=== PATIENT | female | born 1950 | race Caucasian/White ===

== ENCOUNTER → 2016-05-28 | Outpatient (CLI) | payer MEDICARE, OTHER ==
[2016-05-28 16:01] VITALS: BP 144/64; PULSE 58; RESP 16; TEMP 98.2; BMI 27.6
--- NOTE | 2016-05-28 16:29 | P.HPBAR ---
Bariatric H&P - History & Physicial H&P Date: 05/28/16 History & Physicial: Visit/CC: Patient initial contact: Initial weight: 96.162 kg Initial weight in pounds: 212.00 Height: 5 ft Initial BMI: 41.3 Last weight: Current weight: 64.013 kg Current weight in pounds: 141.00 Current BMI: 27.6 [place] body weight (based on NIH guidelines): 45.359 kg Excess body weight loss: 63.3% The patient is a 65 year-old F who presents for Bariatric Assessment. Patient presents today for follow-up. She has had issues with seroma after panniculectomy. Her ISA drainage has decreased. Past Medical History Past Medical History: Atrial Fibrillation, GERD/Reflux, Hypertension, Musculoskeletal Disorder, Pneumonia, Renal Disease Additional Past Medical History / Comment(s): BORN W/ RT KIDNEY ONLY. Gout LT GREAT TOE. PANNICULUS on 03/26/2016, ABD HERNIA'S X3 CURRENTLY. VARICOSE VEIN. History of Any Multi-Drug Resistant Organisms: None Reported Past Surgical History: Bariatric Surgery, Section, Cholecystectomy, Hernia Repair, Hysterectomy Additional Past Surgical History / Comment(s): 2010 Panniculectomy; Several Hernia Surgeries; Gastric Sleeve 2013. Panniculectomy and hernia repair 2015 Past Anesthesia/Blood Transfusion Reactions: No Reported Reaction Past Psychological History: Anxiety, Depression Additional Psychological History / Comment(s): PAST ANXIETY. Smoking Status: Never smoker Past Alcohol Use History: None Reported Past Drug Use History: None Reported - Past Family History Father Family Medical History: Diabetes Mellitus Mother Family Medical History: Cancer, Liver Disease Surgical - Exam Vital Signs Temp Pulse Resp BP 98.2 F 58 L 16 144/64 05/28/16 15:59 05/28/16 15:59 05/28/16 15:59 05/28/16 15:59 - General well developed, no distress - Eyes PERRL - ENT normal pinna - Neck no masses - Respiratory normal expansion - Cardiovascular Rhythm: regular - Abdomen Abdomen: soft, non tender Bariatric Assessment & Plan Plan: The patient's ISA drains removed in the office. Her seroma appears resolved. She'll follow-up with recheck Bariatric Checklist Checklist: Plan: Checklist: EGD: 1. Hiatal hernia: 2. H. Pylori: HgbA1c: Vitamin D: Smoking: Never smoker Primary care physician referral: tabitha Ocasio Psychiatry clearance: Cardiology clearance: Sleep study: Diet journal: VTE risk score: VTE risk level: Rehab needs at discharge:
== END ==
LOC: BARWHC3 13:04
PROVIDERS: ATTEND Surgery
DX: Z48.815 Encounter for surgical aftercare following surgery on the digestive system (principal); Z98.84 Bariatric surgery status; Z68.27 Body mass index [BMI] 27.0-27.9, adult
CPT/HCPCS: 99211

== ENCOUNTER → 2016-07-16 | Outpatient (CLI) | payer MEDICARE, OTHER ==
[2016-07-16 14:59] VITALS: BP 148/81; PULSE 70; RESP 16; TEMP 98.1; BMI 27.4
--- NOTE | 2016-07-16 15:04 | P.HPBAR ---
Bariatric H&P - History & Physicial H&P Date: 07/16/16 History & Physicial: Visit/CC: Cam follow-up Patient initial contact: Initial weight: 96.162 kg Initial weight in pounds: 212.00 Height: 5 ft Initial BMI: 41.3 Last weight: Current weight: 63.73 kg Current weight in pounds: 140.00 Current BMI: 27.4 [place] body weight (based on NIH guidelines): 45.359 kg Excess body weight loss: 64.2% The patient is a 65 year-old F who presents for Bariatric Assessment. Patient presents for follow-up from panniculectomy. She states she has developed a slight mass on the right side of her incision. Past Medical History Past Medical History: Atrial Fibrillation, GERD/Reflux, Hypertension, Musculoskeletal Disorder, Pneumonia, Renal Disease Additional Past Medical History / Comment(s): BORN W/ RT KIDNEY ONLY. Gout LT GREAT TOE. PANNICULUS on 03/26/2016, ABD HERNIA'S X3 CURRENTLY. VARICOSE VEIN. History of Any Multi-Drug Resistant Organisms: None Reported Past Surgical History: Bariatric Surgery, Section, Cholecystectomy, Hernia Repair, Hysterectomy Additional Past Surgical History / Comment(s): 2010 Panniculectomy; Several Hernia Surgeries; Gastric Sleeve 2013. Panniculectomy and hernia repair 2015 Past Anesthesia/Blood Transfusion Reactions: No Reported Reaction Past Psychological History: Anxiety, Depression Additional Psychological History / Comment(s): PAST ANXIETY. Smoking Status: Never smoker Past Alcohol Use History: None Reported Past Drug Use History: None Reported - Past Family History Father Family Medical History: Diabetes Mellitus Mother Family Medical History: Cancer, Liver Disease Surgical - Exam Vital Signs Temp Pulse Resp BP 98.1 F 70 16 148/81 07/16/16 14:55 07/16/16 14:55 07/16/16 14:55 07/16/16 14:55 - General well developed, no distress - Eyes PERRL - ENT normal pinna - Neck no masses - Respiratory normal expansion - Cardiovascular Rhythm: regular - Abdomen Small 5 cm seroma on right side of lower incision. No evidence of infection. Abdomen: soft, non tender Bariatric Assessment & Plan Plan: Throat. 50 mL of seroma fluid was aspirated from the mass. The mass resolved. There is no evidence of any purulent fluid. The patient will follow-up in one week for recheck. Bariatric Checklist Checklist: Plan: Checklist: EGD: 1. Hiatal hernia: 2. H. Pylori: HgbA1c: Vitamin D: Smoking: Never smoker Primary care physician referral: tabitha Ocasio Psychiatry clearance: Cardiology clearance: Sleep study: Diet journal: VTE risk score: VTE risk level: Rehab needs at discharge:
== END | disposition home or self-care (01) ==
LOC: BARWHC3 13:45
PROVIDERS: ATTEND Surgery
DX: Z48.815 Encounter for surgical aftercare following surgery on the digestive system (principal); Z98.84 Bariatric surgery status; Z68.27 Body mass index [BMI] 27.0-27.9, adult; K91.872 Postprocedural seroma of a digestive system organ or structure following a digestive system procedure; D61.818 Other pancytopenia; D46.9 Myelodysplastic syndrome, unspecified
CPT/HCPCS: 99211

== ENCOUNTER → 2016-07-23 | Outpatient (CLI) | payer MEDICARE, OTHER ==
[2016-07-23 13:37] VITALS: BP 131/73; PULSE 58; RESP 14; TEMP 97.3; BMI 27.3
--- NOTE | 2016-07-23 13:46 | P.HPBAR ---
Bariatric H&P - History & Physicial H&P Date: 07/23/16 History & Physicial: Visit/CC: brionna f/u Patient initial contact: Initial weight: 96.162 kg Initial weight in pounds: 212.00 Height: 5 ft Initial BMI: 41.3 Last weight: Current weight: 63.412 kg Current weight in pounds: 139.80 Current BMI: 27.3 [place] body weight (based on NIH guidelines): 45.359 kg Excess body weight loss: 64.4% The patient is a 65 year-old F who presents for Bariatric Assessment. Patient presents today for sleeve follow-up. Her weight has been stable. She also has a small seroma located at the right lateral portion of her Review of Systems Constitutional: Reports as per HPI Past Medical History Past Medical History: Atrial Fibrillation, GERD/Reflux, Hypertension, Musculoskeletal Disorder, Pneumonia, Renal Disease Additional Past Medical History / Comment(s): BORN W/ RT KIDNEY ONLY. Gout LT GREAT TOE. PANNICULUS on 03/26/2016, ABD HERNIA'S X3 CURRENTLY. VARICOSE VEIN. History of Any Multi-Drug Resistant Organisms: None Reported Past Surgical History: Bariatric Surgery, Section, Cholecystectomy, Hernia Repair, Hysterectomy Additional Past Surgical History / Comment(s): 2010 Panniculectomy; Several Hernia Surgeries; Gastric Sleeve 2013. Panniculectomy and hernia repair 2015 Past Anesthesia/Blood Transfusion Reactions: No Reported Reaction Past Psychological History: Anxiety, Depression Additional Psychological History / Comment(s): PAST ANXIETY. Smoking Status: Never smoker Past Alcohol Use History: None Reported Past Drug Use History: None Reported - Past Family History Father Family Medical History: Diabetes Mellitus Mother Family Medical History: Cancer, Liver Disease Surgical - Exam Vital Signs Temp Pulse Resp BP 97.3 F L 58 L 14 131/73 07/23/16 13:28 07/23/16 13:28 07/23/16 13:28 07/23/16 13:28 - General well developed, no distress - Eyes PERRL - ENT normal pinna - Respiratory normal expansion - Abdomen 5 cm mass in the right lateral aspect of her incision where her previous seroma was drained. Abdomen: soft, non tender Bariatric Assessment & Plan Plan: The patient is doing well with regards to gastric sleeve. Her weight loss appears to have plateaued. A lengthy discussion with the patient regarding her small seroma. I recommended observation at this time. Bariatric Checklist Checklist: Plan: Checklist: EGD: 1. Hiatal hernia: 2. H. Pylori: HgbA1c: Vitamin D: Smoking: Never smoker Primary care physician referral: lori avelar ([facility]) Psychiatry clearance: Cardiology clearance: Sleep study: Diet journal: VTE risk score: VTE risk level: Rehab needs at discharge:
== END | disposition home or self-care (01) ==
LOC: BARWHC3 12:31
PROVIDERS: ATTEND Surgery
DX: Z48.815 Encounter for surgical aftercare following surgery on the digestive system (principal); Z68.27 Body mass index [BMI] 27.0-27.9, adult; K91.872 Postprocedural seroma of a digestive system organ or structure following a digestive system procedure; Z98.84 Bariatric surgery status
CPT/HCPCS: 99212

== ENCOUNTER → 2016-08-13 | Outpatient (CLI) | payer MEDICARE, OTHER ==
[2016-08-13 13:07] VITALS: BP 163/74; PULSE 61; RESP 16; TEMP 98.1; BMI 27.8
--- NOTE | 2016-08-13 13:53 | P.HPBAR ---
Bariatric H&P - History & Physicial H&P Date: 08/13/16 History & Physicial: Visit/CC: Cam follow up Patient initial contact: Initial weight: 96.162 kg Initial weight in pounds: 212.00 Height: 5 ft Initial BMI: 41.3 Last weight: Current weight: 64.637 kg Current weight in pounds: 142.00 Current BMI: 27.8 [place] body weight (based on NIH guidelines): 45.359 kg Excess body weight loss: 62.5% The patient is a 65 year-old F who presents for Bariatric Assessment. The patient presents today for follow-up. She is doing well from her gastric sleeve. She has had a recurrent seroma develop in the right lower quadrant. This had been previously aspirated. Review of Systems Constitutional: Reports as per HPI Past Medical History Past Medical History: Atrial Fibrillation, GERD/Reflux, Hypertension, Musculoskeletal Disorder, Pneumonia, Renal Disease Additional Past Medical History / Comment(s): BORN W/ RT KIDNEY ONLY. Gout LT GREAT TOE. PANNICULUS on 03/26/2016, ABD HERNIA'S X3 CURRENTLY. VARICOSE VEIN. History of Any Multi-Drug Resistant Organisms: None Reported Past Surgical History: Bariatric Surgery, Section, Cholecystectomy, Hernia Repair, Hysterectomy Additional Past Surgical History / Comment(s): 2010 Panniculectomy; Several Hernia Surgeries; Gastric Sleeve 2013. Panniculectomy and hernia repair 2015 Past Anesthesia/Blood Transfusion Reactions: No Reported Reaction Past Psychological History: Anxiety, Depression Additional Psychological History / Comment(s): PAST ANXIETY. Smoking Status: Never smoker Past Alcohol Use History: None Reported Past Drug Use History: None Reported - Past Family History Father Family Medical History: Diabetes Mellitus Mother Family Medical History: Cancer, Liver Disease Surgical - Exam Vital Signs Temp Pulse Resp BP 98.1 F 61 16 163/74 08/13/16 13:05 08/13/16 13:05 08/13/16 13:05 08/13/16 13:05 - General well developed, no distress - Eyes PERRL - Respiratory normal expansion - Cardiovascular Rhythm: regular - Abdomen Abdomen: soft, non tender Bariatric Assessment & Plan Plan: The patient's room was aspirated. 10 mL of serosanguineous fluid was removed. This may be related to a small hematoma. Sterile dressings was applied. Patient will follow-up in one month for recheck. Bariatric Checklist Checklist: Plan: Checklist: EGD: 1. Hiatal hernia: 2. H. Pylori: HgbA1c: Vitamin D: Smoking: Never smoker Primary care physician referral: lori avelar ([facility]) Psychiatry clearance: Cardiology clearance: Sleep study: Diet journal: VTE risk score: VTE risk level: Rehab needs at discharge:
== END ==
LOC: BARWHC3 12:40
PROVIDERS: ATTEND Surgery
DX: Z48.815 Encounter for surgical aftercare following surgery on the digestive system (principal); Z98.84 Bariatric surgery status
CPT/HCPCS: 99211

== ENCOUNTER → 2016-09-17 | Outpatient (CLI) | payer MEDICARE, OTHER ==
[2016-09-17 14:36] VITALS: BP 169/71; PULSE 53; TEMP 98.2; BMI 28.1
--- NOTE | 2016-09-17 16:19 | P.HPBAR ---
Bariatric H&P - History & Physicial H&P Date: 09/17/16 History & Physicial: Visit/CC: follow up visit Patient initial contact: Initial weight: 96.162 kg Initial weight in pounds: 212.00 Height: 5 ft Initial BMI: 41.3 Last weight: Current weight: 65.317 kg Current weight in pounds: 144.00 Current BMI: 28.1 [place] body weight (based on NIH guidelines): 45.359 kg Excess body weight loss: 60.7% The patient is a 65 year-old F who presents for Bariatric Assessment. The patient presents today for sleeve gastrectomy follow-up. She states her previous seromas have resolved. She's had some mild GERD symptoms. Past Medical History Past Medical History: Atrial Fibrillation, GERD/Reflux, Hypertension, Musculoskeletal Disorder, Pneumonia, Renal Disease Additional Past Medical History / Comment(s): BORN W/ RT KIDNEY ONLY. Gout LT GREAT TOE. PANNICULUS on 03/26/2016, ABD HERNIA'S X3 CURRENTLY. VARICOSE VEIN. History of Any Multi-Drug Resistant Organisms: None Reported Past Surgical History: Bariatric Surgery, Section, Cholecystectomy, Hernia Repair, Hysterectomy Additional Past Surgical History / Comment(s): 2010 Panniculectomy; Several Hernia Surgeries; Gastric Sleeve 2013. Panniculectomy and hernia repair 2015 Past Anesthesia/Blood Transfusion Reactions: No Reported Reaction Past Psychological History: Anxiety, Depression Additional Psychological History / Comment(s): PAST ANXIETY. Smoking Status: Never smoker Past Alcohol Use History: None Reported Past Drug Use History: None Reported - Past Family History Father Family Medical History: Diabetes Mellitus Mother Family Medical History: Cancer, Liver Disease Surgical - Exam Vital Signs Temp Pulse BP 98.2 F 53 L 169/71 09/17/16 14:31 09/17/16 14:31 09/17/16 14:31 - General well developed, no distress - Eyes PERRL - Respiratory normal expansion - Cardiovascular Rhythm: regular - Abdomen Abdomen: soft, non tender Bariatric Assessment & Plan Plan: The patient is doing very well. Her GERD symptoms as well as her. She'll follow-up in one month. Bariatric Checklist Checklist: Plan: Checklist: EGD: 1. Hiatal hernia: 2. H. Pylori: HgbA1c: Vitamin D: Smoking: Never smoker Primary care physician referral: lori franklinttrell) Psychiatry clearance: Cardiology clearance: Sleep study: Diet journal: VTE risk score: VTE risk level: Rehab needs at discharge:
== END | disposition home or self-care (01) ==
LOC: BARWHC3 13:55
PROVIDERS: ATTEND Surgery
DX: K21.9 Gastro-esophageal reflux disease without esophagitis (principal); Z98.84 Bariatric surgery status
CPT/HCPCS: 99211

== ENCOUNTER → 2016-10-22 | Outpatient (CLI) | payer MEDICARE, OTHER ==
[2016-10-22 13:21] VITALS: BP 151/70; PULSE 56; RESP 16; TEMP 97.9; BMI 27.6
--- NOTE | 2016-10-22 13:35 | P.HPBAR ---
Bariatric H&P - History & Physicial H&P Date: 10/22/16 History & Physicial: Visit/CC: Cam [place] Patient initial contact: Initial weight: 96.162 kg Initial weight in pounds: 212.00 Height: 5 ft Initial BMI: 41.3 Last weight: Current weight: 64.183 kg Current weight in pounds: 141.00 Current BMI: 27.6 [place] body weight (based on NIH guidelines): 45.359 kg Excess body weight loss: 63.3% The patient is a 65 year-old F who presents for Bariatric Assessment. Patient presents today for sleeve and panniculus for follow-up. She is doing quite well. She's had minimal GERD symptoms.. She's had some weight loss since her last visit. She lost presents today for pounds. The patient has had some minimal GERD. Her GERD is being managed by Pepcid when necessary. Past Medical History Past Medical History: Atrial Fibrillation, GERD/Reflux, Hypertension, Musculoskeletal Disorder, Pneumonia, Renal Disease Additional Past Medical History / Comment(s): BORN W/ RT KIDNEY ONLY. Gout LT GREAT TOE. PANNICULUS on 03/26/2016, ABD HERNIA'S X3 CURRENTLY. VARICOSE VEIN. History of Any Multi-Drug Resistant Organisms: None Reported Past Surgical History: Bariatric Surgery, Section, Cholecystectomy, Hernia Repair, Hysterectomy Additional Past Surgical History / Comment(s): 2010 Panniculectomy; Several Hernia Surgeries; Gastric Sleeve 2013. Panniculectomy and hernia repair 2015 Past Anesthesia/Blood Transfusion Reactions: No Reported Reaction Past Psychological History: Anxiety, Depression Additional Psychological History / Comment(s): PAST ANXIETY. Smoking Status: Never smoker Past Alcohol Use History: None Reported Past Drug Use History: None Reported - Past Family History Father Family Medical History: Diabetes Mellitus Mother Family Medical History: Cancer, Liver Disease Surgical - Exam Vital Signs Temp Pulse Resp BP 97.9 F 56 L 16 151/70 10/22/16 13:20 10/22/16 13:20 10/22/16 13:20 10/22/16 13:20 Bariatric Assessment & Plan Plan: Morbid obesity status post sleeve gastrectomy. Patient has maintained good weight loss. Her GERD symptoms are minimal and be observed. She'll follow-up in 3 months Bariatric Checklist Checklist: Plan: Checklist: EGD: 1. Hiatal hernia: 2. H. Pylori: HgbA1c: Vitamin D: Smoking: Never smoker Primary care physician referral: lori avealr ([facility]) Psychiatry clearance: Cardiology clearance: Sleep study: Diet journal: VTE risk score: VTE risk level: Rehab needs at discharge:
== END | disposition home or self-care (01) ==
LOC: BARWHC3 12:42
PROVIDERS: ATTEND Surgery
DX: Z09 Encounter for follow-up examination after completed treatment for conditions other than malignant neoplasm (principal); I10 Essential (primary) hypertension; K21.9 Gastro-esophageal reflux disease without esophagitis; I48.91 Unspecified atrial fibrillation; F41.9 Anxiety disorder, unspecified; F32.9 Major depressive disorder, single episode, unspecified; Z98.84 Bariatric surgery status
CPT/HCPCS: 99211

== ENCOUNTER 2016-11-23 09:29 | Inpatient (IN) | payer MEDICARE, OTHER ==
--- NOTE | 2016-11-23 10:18 | ED ---
General Adult HPI - General Chief complaint: Weakness Stated complaint: bleeding Time Seen by Provider: 11/23/16 09:35 Source: patient, RN notes reviewed Mode of arrival: wheelchair Limitations: no limitations - History of Present Illness Initial comments: This is a 66-year-old female who presents to the emergency department with vaginal bleeding. Patient states she was having sex and she felt something pop and then she started having vaginal bleeding. Patient states she feels a little bit weak and has no pain. Patient denies any current is happening before. Patient has a past medical history significant for a gastric sleeve and a tummy tuck within the last year. Patient denies any nausea or vomiting. Patient denies any syncopal episodes or near syncopal episodes. Patient denies any back pain patient denies any dysuria hematuria urinary frequency. Patient denies any palpitations or shortness of breath - Related Data Home Medications Medication Instructions Recorded Confirmed Allopurinol [Zyloprim] 300 mg PO DAILY 11/29/15 11/23/16 Cholecalciferol [Vitamin D3] 400 unit PO DAILY 11/29/15 11/23/16 Cyanocobalamin [Vitamin B-12] 1,000 mcg PO DAILY 11/29/15 11/23/16 FLUoxetine HCL [PROzac] 20 mg PO HS 11/29/15 11/23/16 FLUoxetine HCL [PROzac] 40 mg PO QAM 11/29/15 11/23/16 Gabapentin [Neurontin] 300 mg PO HS 11/29/15 11/23/16 Melatonin 10 mg PO HS 11/29/15 11/23/16 Multivitamin with Iron 1 tab PO DAILY 11/29/15 11/23/16 [Multivitamins with Iron] Pantoprazole Sodium [Protonix] 40 mg PO DAILY 11/29/15 11/23/16 Potassium Chloride ER [K-Dur 20] 20 meq PO BID 11/29/15 11/23/16 Biotin 5 mg PO DAILY 03/26/16 11/23/16 Furosemide [Lasix] 20 mg PO QAM 07/23/16 11/23/16 Albuterol Nebulized [Ventolin 2.5 mg INHALATION RT-Q6H PRN 11/23/16 11/23/16 Nebulized] Calcium Citrate 500 mg PO DAILY 11/23/16 11/23/16 HYDROcodone/APAP 7.5-325MG [[place] 1 tab PO BID PRN 11/23/16 11/23/16 7.5-325] Metoprolol Succinate [Toprol XL] 12.5 mg PO DAILY 11/23/16 11/23/16 Propafenone [Rythmol] 150 mg PO BID 11/23/16 11/23/16 Vitamin B Complex 1 cap PO DAILY 11/23/16 11/23/16 buPROPion [Wellbutrin] 75 mg PO BID 11/23/16 11/23/16 Previous Rx's Medication Instructions Recorded Dabigatran Etexilate Mesylate 150 mg PO BID #60 capsule 04/02/16 [Pradaxa] amLODIPine [Norvasc] 5 mg PO DAILY #30 tab 04/02/16 Allergies Allergy/AdvReac Type Severity Reaction Status Date / Time No Known Allergies Allergy Verified 11/23/16 10:11 Review of Systems ROS Statement: Those systems with pertinent positive or pertinent negative responses have been documented in the HPI. ROS Other: All systems not noted in ROS Statement are negative. Past Medical History Past Medical History: Atrial Fibrillation, GERD/Reflux, Hypertension, Musculoskeletal Disorder, Pneumonia, Renal Disease Additional Past Medical History / Comment(s): BORN W/ RT KIDNEY ONLY. Gout LT GREAT TOE. PANNICULUS on 03/26/2016, ABD HERNIA'S X3 CURRENTLY. VARICOSE VEIN. History of Any Multi-Drug Resistant Organisms: None Reported Past Surgical History: Bariatric Surgery, Section, Cholecystectomy, Hernia Repair, Hysterectomy Additional Past Surgical History / Comment(s): 2010 Panniculectomy; Several Hernia Surgeries; Gastric Sleeve 2013. Panniculectomy and hernia repair 2015 Past Anesthesia/Blood Transfusion Reactions: No Reported Reaction Past Psychological History: Anxiety, Depression Smoking Status: Never smoker Past Alcohol Use History: None Reported Past Drug Use History: None Reported - Past Family History Father Family Medical History: Diabetes Mellitus Mother Family Medical History: Cancer, Liver Disease General Exam - General Exam Comments Initial Comments: GENERAL: Patient is well-developed and well-nourished. Patient is nontoxic and well- hydrated and is in no acute distress. ENT: Neck is soft and supple. No significant lymphadenopathy is noted. Oropharynx is clear. Moist mucous membranes. Neck has full range of motion without eliciting any pain. EYES: The sclera were anicteric and conjunctiva were pink and moist. Extraocular movements were intact and pupils were equal round and reactive to light. Eyelids were unremarkable. PULMONARY: Unlabored respirations. Good breath sounds bilaterally. No audible rales rhonchi or wheezing was noted. CARDIOVASCULAR: There is a regular rate and rhythm without any murmurs gallops or rubs. ABDOMEN: Soft and nontender with normal bowel sounds. SKIN: Skin is clear with no lesions or rashes and otherwise unremarkable. NEUROLOGIC: Patient is alert and oriented x3. Cranial nerves II through XII are grossly intact. Motor and sensory are also intact. Normal speech, volume and content. Symmetrical smile. MUSCULOSKELETAL: Normal extremities with adequate strength and full range of motion. No lower extremity swelling or edema. No calf tenderness. LYMPHATICS: No significant lymphadenopathy is noted PSYCHIATRIC: Normal psychiatric evaluation. Limitations: no limitations Course Vital Signs 11/23/16 11/23/16 09:31 12:12 Temperature 96.9 F L Pulse Rate 53 L 87 Respiratory 18 17 Rate Blood Pressure 87/53 150/105 O2 Sat by Pulse 97 94 L Oximetry Medical Decision Making - Medical Decision Making EKG shows sinus bradycardia 50 bpm [place] interval is 172 QRS is 124 QT interval is 448 QTC is 408. Patient's EKG shows no ST segment elevation or depression or T- wave abnormality is noted. Dr. Beal came in to see the patient and found a vaginal laceration and will be taking the patient to the OR. - Lab Data Result diagrams: 11/23/16 09:54 11/23/16 09:54 Lab Results 11/23/16 11/23/16 11/23/16 Range/Units 09:54 09:54 09:54 WBC 6.4 (3.8-10.6) k/uL RBC 4.47 (3.80-5.40) m/uL Hgb 12.8 (11.4-16.0) gm/dL Hct 38.1 (34.0-46.0) % MCV 85.4 (80.0-100.0) fL MCH 28.6 (25.0-35.0) pg MCHC 33.5 (31.0-37.0) g/dL RDW 14.0 (11.5-15.5) % Plt Count 161 (150-450) k/uL Neutrophils % 65 % Lymphocytes % 24 % Monocytes % 5 % Eosinophils % 3 % Basophils % 1 % Neutrophils # 4.1 (1.3-7.7) k/uL Lymphocytes # 1.5 (1.0-4.8) k/uL Monocytes # 0.3 (0-1.0) k/uL Eosinophils # 0.2 (0-0.7) k/uL Basophils # 0.1 (0-0.2) k/uL PT 10.8 (9.0-12.0) sec INR 1.1 (<1.1) APTT 25.9 (22.0-30.0) sec Sodium 139 (137-145) mmol/L Potassium 4.4 (3.5-5.1) mmol/L Chloride 103 (98-107) mmol/L Carbon Dioxide 29 (22-30) mmol/L Anion Gap 7 mmol/L BUN 19 H (7-17) mg/dL Creatinine 0.60 (0.52-1.04) mg/dL Est GFR (MDRD) Af Amer >60 (>60 ml/min/1.73 sqM) Est GFR (MDRD) Non-Af >60 (>60 ml/min/1.73 sqM) Glucose 118 H (74-99) mg/dL Calcium 9.2 (8.4-10.2) mg/dL Total Bilirubin 1.0 (0.2-1.3) mg/dL AST 25 (14-36) U/L ALT 36 (9-52) U/L Alkaline Phosphatase 67 (38-126) U/L Total Protein 5.6 L (6.3-8.2) g/dL Albumin 3.5 (3.5-5.0) g/dL Disposition Clinical Impression: Vaginal laceration Disposition: ADMITTED IP TO THIS HOSP Referrals: None,Stated [Primary Care Provider] - 1-2 days Time of Disposition: 13:01
[2016-11-23 10:57] LABS: Basophils # (A) 0.1 k/uL (0-0.2); Basophils % (A) 1 %; CH 28.8; CHCM 33.9; Eosinophils # (A) 0.2 k/uL (0-0.7); Eosinophils % (A) 3 %; HCT 38.1 % (34.0-46.0); HGB 12.8 gm/dL (11.4-16.0); Luc # (Auto) 0.17; Luc % (Auto) 3; Lymphocytes # (A) 1.5 k/uL (1.0-4.8); Lymphocytes % (A) 24 %; MCH 28.6 pg (25.0-35.0); MCHC 33.5 g/dL (31.0-37.0); MCV 85.4 fL (80.0-100.0); Monocytes # (A) 0.3 k/uL (0-1.0); Monocytes % (A) 5 %; Neutrophils # (A) 4.1 k/uL (1.3-7.7); Neutrophils % (A) 65 %; RBC 4.47 m/uL (3.80-5.40); WBC 6.4 k/uL (3.8-10.6); WBC (Perox) 6.15
[2016-11-23 11:05] LABS: ALT 36 U/L (9-52); AST 25 U/L (14-36); Alkaline Phosphatase 67 U/L (38-126); Anion Gap 7 mmol/L; Blood Urea Nitrogen 19 mg/dL (7-17); Calcium 9.2 mg/dL (8.4-10.2); Carbon Dioxide 29 mmol/L (22-30); Chloride 103 mmol/L (98-107); Glucose 118 mg/dL (74-99); Non-African American GFR(MDRD) >60 (>60 ml/min/1.73 sqM); Potassium 4.4 mmol/L (3.5-5.1); Sodium 139 mmol/L (137-145); Total Protein 5.6 g/dL (6.3-8.2)
[2016-11-23 11:06] LABS: INR 1.1 (<1.1); Partial Thromboplastin Time 25.9 sec (22.0-30.0); Prothrombin Time 10.8 sec (9.0-12.0)
[2016-11-23] MEDS ORDERED: SODIUM CHLORIDE 0.9% 500 ML IV STA (12:15)
--- NOTE | 2016-11-23 12:46 | US ---
EXAMINATION TYPE: US transvaginal DATE OF EXAM: 11/23/2016 COMPARISON: NONE CLINICAL HISTORY: 66-year-old female Pain. Bleeding x 4 hours, hysterectomy 30+ years ago TECHNIQUE: Transvaginal (TV) Date of LMP: 30+ years ago FINDINGS: There is heterogeneously thickening of the vaginal cuff measuring up to 3.6 cm. There may be some int erposed fluid centrally. Uterus and ovaries are surgically absent. No evident adnexal abnormality or cul-de-sac free fluid. PRODUCTION CONTROL [employer]OARD CLERK NOTES: 3.6cm hypoechoic complex area appears to be within upper portion of vaginal/cuf f area, possible blood, tissue vs. mass IMPRESSION: Heterogeneous thickening of the vaginal cuff region measuring up to 3.6 cm. The uterus itself is surg ically absent. Gynecologic consultation may be helpful to evaluate for possible infection or mass at the vaginal cuff.
[2016-11-23] MEDS ORDERED: IV FLUID CONTINUATION 1,000 ML IV ONE (13:17)
[2016-11-23] MEDS ORDERED: SODIUM CHLORIDE 0.9% 1,000 ML IV ONE ×2 (13:20→13:40)
--- NOTE | 2016-11-23 13:20 | P.HPOB ---
History of Present Illness H&P Date: 11/23/16 This is a 66-year-old 1 para 1 woman who presented to the emergency room with heavy vaginal bleeding following an episode of intercourse this morning. She reports being engaged in intercourse when she heard a "pop" and started having vaginal bleeding. She denies any pain. Her gynecologic history is significant for hysterectomy in the 1980s for unknown reasons. She is currently on anticoagulation with predaxa for history of atrial fibrillation and bariatric surgery. Vaginal examination the emergency room reveals an approximately 3 cm apical laceration in the vagina that is actively bleeding. Review of Systems Constitutional: Denies chills, Denies fever Cardiovascular: Denies chest pain, Denies lightheadedness, Denies shortness of breath Respiratory: Denies cough Gastrointestinal: Denies abdominal pain Genitourinary: Reports abnormal vaginal bleeding, Denies pelvic pain Menstruation: Reports post hysterectomy Musculoskeletal: Reports low back pain Neurological: Denies headaches Hematologic/Lymphatic: Reports easy bleeding Past Medical History Past Medical History: Atrial Fibrillation, GERD/Reflux, Hypertension, Musculoskeletal Disorder, Pneumonia, Renal Disease Additional Past Medical History / Comment(s): BORN W/ RT KIDNEY ONLY. Gout LT GREAT TOE. PANNICULUS on 03/26/2016, ABD HERNIA'S X3 CURRENTLY. VARICOSE VEIN. History of Any Multi-Drug Resistant Organisms: None Reported Past Surgical History: Bariatric Surgery, Section, Cholecystectomy, Hernia Repair, Hysterectomy Additional Past Surgical History / Comment(s): 2010 Panniculectomy; Several Hernia Surgeries; Gastric Sleeve 2013. Panniculectomy and hernia repair 2015 Past Anesthesia/Blood Transfusion Reactions: No Reported Reaction Past Psychological History: Anxiety, Depression Smoking Status: Never smoker Past Alcohol Use History: None Reported Past Drug Use History: None Reported - Past Family History Father Family Medical History: Diabetes Mellitus Mother Family Medical History: Cancer, Liver Disease Medications and Allergies Home Medications Medication Instructions Recorded Confirmed Type Allopurinol [Zyloprim] 300 mg PO DAILY 11/29/15 11/23/16 History Cholecalciferol [Vitamin D3] 400 unit PO DAILY 11/29/15 11/23/16 History Cyanocobalamin [Vitamin B-12] 1,000 mcg PO DAILY 11/29/15 11/23/16 History FLUoxetine HCL [PROzac] 20 mg PO HS 11/29/15 11/23/16 History FLUoxetine HCL [PROzac] 40 mg PO QAM 11/29/15 11/23/16 History Gabapentin [Neurontin] 300 mg PO HS 11/29/15 11/23/16 History Melatonin 10 mg PO HS 11/29/15 11/23/16 History Multivitamin with Iron 1 tab PO DAILY 11/29/15 11/23/16 History [Multivitamins with Iron] Pantoprazole Sodium [Protonix] 40 mg PO DAILY 11/29/15 11/23/16 History Potassium Chloride ER [K-Dur 20] 20 meq PO BID 11/29/15 11/23/16 History Biotin 5 mg PO DAILY 03/26/16 11/23/16 History Furosemide [Lasix] 20 mg PO QAM 07/23/16 11/23/16 History Albuterol Nebulized [Ventolin 2.5 mg INHALATION RT-Q6H PRN 11/23/16 11/23/16 History Nebulized] Calcium Citrate 500 mg PO DAILY 11/23/16 11/23/16 History HYDROcodone/APAP 7.5-325MG [[place] 1 tab PO BID PRN 11/23/16 11/23/16 History 7.5-325] Metoprolol Succinate [Toprol XL] 12.5 mg PO DAILY 11/23/16 11/23/16 History Propafenone [Rythmol] 150 mg PO BID 11/23/16 11/23/16 History Vitamin B Complex 1 cap PO DAILY 11/23/16 11/23/16 History buPROPion [Wellbutrin] 75 mg PO BID 11/23/16 11/23/16 History Allergies Allergy/AdvReac Type Severity Reaction Status Date / Time No Known Allergies Allergy Verified 11/23/16 10:11 Exam - Vital Signs Vital signs: Vital Signs Temp Pulse Resp BP Pulse Ox 11/23/16 13:00 98.4 F 64 18 86/46 97 11/23/16 12:12 87 17 150/105 94 L 11/23/16 09:31 96.9 F L 53 L 18 87/53 97 Intake and Output 11/22/16 11/23/16 11/23/16 22:59 06:59 14:59 Other: Weight 62.142 kg Patient Weight 11/24/16 06:59 Weight 62.142 kg This is a pleasant but pale appearing elderly female who is in the supine position. Targeted physical exam is performed. The abdomen is soft. There is scarring consistent with the panniculectomy procedure. The abdomen is nontender with no rebound and no guarding. The lungs are clear to auscultation anteriorly and the heart is a regular rate and rhythm. On pelvic examination there is active vaginal bleeding noted with clots. The external genitalia is inspected and no injury or lacerations were noted. With speculum examination there is a large amount of clot and bright red bleeding in the vaginal vault. This is evacuated. There is an approximately 3 cm laceration at the right apex of the vaginal cuff that appears to be the source of the bleeding. Thorough inspection of the rest of the vagina reveals no reveals no other obvious injuries. Results Result Diagrams: 11/23/16 09:54 11/23/16 09:54 Abnormal Lab Results - Last 24 Hours (Table) 11/23/16 Range/Units 09:54 BUN 19 H (7-17) mg/dL Glucose 118 H (74-99) mg/dL Total Protein 5.6 L (6.3-8.2) g/dL US - abdomen: report reviewed Assessment and Plan (1) Vaginal laceration Status: Acute Plan: This is a 66-year-old 1 para 1 woman with an a vaginal apex laceration that is actively bleeding and requires repair. Findings were reviewed with the patient in detail and I do recommend repair of laceration in the operating room where better visualization and instrumentation are available. Risks of the procedure may include infection, hematoma formation and/or vaginal scarring. The possibility of injury to bowel or bladder. Consent is obtained. The operating room is notified. We'll clarify when last dose of her predaxa was taken. Time with Patient: Greater than 30
[2016-11-23] MEDS ORDERED: fentaNYL (PF) 50 MCG/ML 2 ML AMP ONE (13:48)
[2016-11-23] MEDS ORDERED: ALBUMIN HUMAN 5% 500 ML VIAL IVPB ONE (13:48)
[2016-11-23] MEDS ORDERED: SUCCINYLCHOLINE CHLORIDE 100 MG/5 ML SYR IV ONE (13:48)
[2016-11-23] MEDS ORDERED: ePHEDrine 50 MG/ML 1 ML AMP ONE (13:48)
[2016-11-23] MEDS ORDERED: ONDANSETRON 4 MG/2 ML VIAL ONE (13:48)
[2016-11-23] MEDS ORDERED: ETOMIDATE 2 MG/ML 10 ML VIAL ONE (13:48)
[2016-11-23] MEDS ORDERED: MIDAZOLAM 2 MG/2 ML VIAL ONE (13:48)
[2016-11-23] MEDS ORDERED: BACITRACIN 500 UNIT/GM OINT 28.4 GM TUBE TOPICAL ONE (14:41)
[2016-11-23 14:46] LABS: CH 27.9; CHCM 32.5; HCT 24.1 % (34.0-46.0); HDW 2.64; MCH 29.4 pg (25.0-35.0); MCV 86.5 fL (80.0-100.0); Mean Platelet Volume 7.1; RBC 2.78 m/uL (3.80-5.40); RDW 13.8 % (11.5-15.5); WBC 8.3 k/uL (3.8-10.6)
[2016-11-23] MEDS ORDERED: LACTATED RINGERS 1,000 ML IV ONE (14:54)
[2016-11-23 15:00] LABS: HGB 8.2 gm/dL (11.4-16.0)
--- NOTE | 2016-11-23 15:04 | P.OP ---
Date of Procedure: 11/23/16 Preoperative Diagnosis: Vaginal bleeding Vaginal trauma Postoperative Diagnosis: Vaginal bleeding Vaginal trauma Vaginal apex laceration Procedure(s) Performed: Exam under anesthesia Repair of vaginal laceration Cystoscopy Implants: Anesthesia: PATRIAA Surgeon: Sandra Beal Estimated Blood Loss (ml): 150 IV fluids (ml): 2,400 (500 albumin, 1 unit PRBCs) Urine output (ml): 25 Pathology: none sent Condition: stable Disposition: PACU Indications for Procedure: Vaginal laceration and vaginal bleeding Operative Findings: Atrophic vagina with approximately 4 cm vertical laceration extending anterior to posterior Description of Procedure: The patient was taken to the operating room after having been examined and counseled in the emergency room. Anesthetic was administered without incident. She was then positioned, prepped and draped in the dorsal lithotomy position. Bladder was drained for approximately 25 mL of clear urine. Appropriate timeout procedure was undertaken. The external genitalia was inspected and no injury or trauma was noted. The vagina was evacuated of approximately 100 mL of clot. Weighted speculum was placed in the vagina and a high apical laceration was appreciated. This was grasped with an Allis clamp and figure-of- eight suture was placed using 0 Vicryl suture. Applying some countertraction and the extensive laceration was then able to be better visualized. Additional interrupted sutures were placed. The laceration was not deep however she continued to lose actively in between each suture as well as from the suture sites themselves. The laceration did extend anteriorly and the vaginal tissue was very thin. Deep suturing was required in order to control the bleeding. The majority of the bleeding was controlled with approximately 6 sutures placed where there was some ongoing oozing from the site. Due to anterior placement of stitches integrity the bladder was a concern. Cystoscopy was undertaken and the interior of the bladder was directly visualized. No blood was noted and no suture material was noted in the bladder itself. Rectal examination was performed and there did not feel to be any palpable suture material in the lower rectum area. The laceration was reinspected and again was completely closed however there still is a small amount of bleeding noted. Therefore the vagina was packed with Kerlix sponge tightly. Rosen catheter was placed in the bladder. The patient was stable throughout the procedure and did receive 2 units of packed blood red blood cells. Her preoperative hemoglobin in the emergency room on admission was 12.4 and intraoperatively was 8.0. She was awoken from anesthetic without incident and transported to recovery area in stable condition.
[2016-11-23] MEDS: HYDROmorphone 1 MG/ML 1 ML SYRINGE IVP ONE ×2 (15:22→15:27)
[2016-11-23] MEDS ORDERED: diphenhydrAMINE 50 MG/ML 1 ML VIAL IVP PRN (16:03)
[2016-11-23] MEDS ORDERED: LACTATED RINGERS 1,000 ML IV SCH (16:03)
[2016-11-23] MEDS ORDERED: Acetaminophen-Codeine 300-30mg TAB PO PRN (16:03)
[2016-11-23] MEDS ORDERED: ALBUTEROL NEBULIZED 2.5 MG/3 ML INHALATION PRN (16:03)
[2016-11-23 20:56] VITALS: BMI 26.7
[2016-11-23] MEDS ORDERED: FLUoxetine HCL 20 MG CAP PO SCH (21:00)
[2016-11-23] MEDS ORDERED: GABAPENTIN 300 MG CAP PO SCH (21:00)
[2016-11-23] MEDS: buPROPion 75 MG TAB PO SCH (21:02)
[2016-11-23] MEDS: POTASSIUM CHLORIDE ER 20 MEQ TAB.ER PO SCH (21:02)
[2016-11-23] MEDS: PROPAFENONE 150 MG TAB PO SCH (21:48)
[2016-11-24 06:10] LABS: Basophils % (A) 0 %; CH 29.4; CHCM 33.7; Eosinophils % (A) 0 %; HCT 28.6 % (34.0-46.0); HDW 2.97; Luc # (Auto) 0.16; Luc % (Auto) 2; Lymphocytes # (A) 1.7 k/uL (1.0-4.8); Lymphocytes % (A) 17 %; MCH 29.7 pg (25.0-35.0); MCHC 33.8 g/dL (31.0-37.0); MCV 87.7 fL (80.0-100.0); Mean Platelet Volume 7.5; Monocytes # (A) 0.4 k/uL (0-1.0); Monocytes % (A) 4 %; Neutrophils # (A) 7.2 k/uL (1.3-7.7); Neutrophils % (A) 76 %; RBC 3.26 m/uL (3.80-5.40); RDW 14.4 % (11.5-15.5); WBC 9.5 k/uL (3.8-10.6); WBC (Perox) 9.27
[2016-11-24 06:13] LABS: HGB 9.7 gm/dL (11.4-16.0)
[2016-11-24] MEDS ORDERED: PANTOPRAZOLE 40 MG TABLET PO SCH (07:30)
[2016-11-24] MEDS ORDERED: ALLOPURINOL 300 MG TAB PO SCH (09:00)
[2016-11-24] MEDS ORDERED: METOPROLOL SUCCINATE (ER) 25 MG TAB.ER.24H PO SCH (09:00)
[2016-11-24] MEDS ORDERED: FUROSEMIDE 20 MG TAB PO SCH (09:00)
[2016-11-24] MEDS: buPROPion 75 MG TAB PO SCH (09:30)
[2016-11-24] MEDS: POTASSIUM CHLORIDE ER 20 MEQ TAB.ER PO SCH (09:31)
--- NOTE | 2016-11-24 10:15 | P.HPIM ---
History of Present Illness H&P Date: 11/24/16 Chief Complaint: Vaginal bleeding We are covering for Dr. Mata over the weekend who will return on Saturday. This is a 66-year-old female patient being seen, examined and evaluated. This patient presented to the emergency room with heavy vaginal bleeding following an episode of intercourse on 11/23/2016. The patient reports while engaged in intercourse she did hear a pop and started having vaginal bleeding. Patient does have a history of atrial fibrillation and takes pradaxa. Patient does have a known history of a hysterectomy and bariatric surgery within the last year. Patient denies any dizziness, nausea, vomiting or syncopal episodes. The patient was seen by [facility] and did go to the OR for a 3 cm vaginal laceration repair on the vaginal cuff. The patient has had no further bleeding since the procedure on 11/23/2016. The patient was admitted for overnight observation. The patient did require 2 units of packed red blood cells for hemoglobin that went from 12.8 dropped to 8.2. Today the patient's hemoglobin is stable at 9.7. Currently the patient still has vaginal packing which will be removed today by [facility]. Patient also has a Rosen in place demonstrating clear yellow urine. Review of Systems 14 point review of systems was completed and is negative unless stated above Past Medical History Past Medical History: Atrial Fibrillation, GERD/Reflux, Hypertension, Musculoskeletal Disorder, Pneumonia, Renal Disease Additional Past Medical History / Comment(s): BORN W/ RT KIDNEY ONLY. Gout LT GREAT TOE. PANNICULUS on 03/26/2016, ABD HERNIA'S X3 CURRENTLY. VARICOSE VEIN. History of Any Multi-Drug Resistant Organisms: None Reported Past Surgical History: Bariatric Surgery, Section, Cholecystectomy, Hernia Repair, Hysterectomy Additional Past Surgical History / Comment(s): 2010 Panniculectomy; Several Hernia Surgeries; Gastric Sleeve 2013. Panniculectomy and hernia repair 2015 Past Anesthesia/Blood Transfusion Reactions: No Reported Reaction Past Psychological History: Anxiety, Depression Additional Psychological History / Comment(s): PAST ANXIETY. Smoking Status: Never smoker Past Alcohol Use History: None Reported Past Drug Use History: None Reported - Past Family History Father Family Medical History: Diabetes Mellitus Mother Family Medical History: Cancer, Liver Disease Medications and Allergies Home Medications Medication Instructions Recorded Confirmed Type Allopurinol [Zyloprim] 300 mg PO DAILY 11/29/15 11/23/16 History Cholecalciferol [Vitamin D3] 400 unit PO DAILY 11/29/15 11/23/16 History Cyanocobalamin [Vitamin B-12] 1,000 mcg PO DAILY 11/29/15 11/23/16 History FLUoxetine HCL [PROzac] 20 mg PO HS 11/29/15 11/23/16 History FLUoxetine HCL [PROzac] 40 mg PO QAM 11/29/15 11/23/16 History Gabapentin [Neurontin] 300 mg PO HS 11/29/15 11/23/16 History Melatonin 10 mg PO HS 11/29/15 11/23/16 History Multivitamin with Iron 1 tab PO DAILY 11/29/15 11/23/16 History [Multivitamins with Iron] Pantoprazole Sodium [Protonix] 40 mg PO DAILY 11/29/15 11/23/16 History Potassium Chloride ER [K-Dur 20] 20 meq PO BID 11/29/15 11/23/16 History Biotin 5 mg PO DAILY 03/26/16 11/23/16 History Furosemide [Lasix] 20 mg PO QAM 07/23/16 11/23/16 History Albuterol Nebulized [Ventolin 2.5 mg INHALATION RT-Q6H PRN 11/23/16 11/23/16 History Nebulized] Calcium Citrate 500 mg PO DAILY 11/23/16 11/23/16 History HYDROcodone/APAP 7.5-325MG [[place] 1 tab PO BID PRN 11/23/16 11/23/16 History 7.5-325] Metoprolol Succinate [Toprol XL] 12.5 mg PO DAILY 11/23/16 11/23/16 History Propafenone [Rythmol] 150 mg PO BID 11/23/16 11/23/16 History Vitamin B Complex 1 cap PO DAILY 11/23/16 11/23/16 History buPROPion [Wellbutrin] 75 mg PO BID 11/23/16 11/23/16 History Allergies Allergy/AdvReac Type Severity Reaction Status Date / Time No Known Allergies Allergy Verified 11/23/16 10:11 Physical Exam Vitals: Vital Signs Temp Pulse Pulse Pulse Resp BP BP 11/24/16 09:26 72 18 100/53 11/24/16 08:50 98.1 F 65 19 11/24/16 06:10 98.2 F 65 18 11/24/16 00:00 60 16 11/23/16 20:03 64 16 11/23/16 20:00 63 16 11/23/16 19:33 97.9 F 63 16 11/23/16 19:03 67 16 11/23/16 18:03 66 16 11/23/16 17:33 71 16 11/23/16 17:03 68 16 11/23/16 16:48 70 16 11/23/16 16:33 67 16 11/23/16 16:18 97.1 F L 70 16 11/23/16 16:00 61 16 143/67 11/23/16 15:45 66 16 125/66 11/23/16 15:30 66 14 121/61 11/23/16 15:15 71 14 113/56 11/23/16 15:07 97.7 F 74 12 127/61 11/23/16 13:37 98.2 F 63 18 75/51 11/23/16 13:35 11/23/16 13:00 98.4 F 64 18 86/46 11/23/16 12:12 87 17 150/105 BP Pulse Ox 11/24/16 09:26 11/24/16 08:50 102/46 94 L 11/24/16 06:10 114/63 96 11/24/16 00:00 84/44 11/23/16 20:03 116/60 98 11/23/16 20:00 97 11/23/16 19:33 114/62 11/23/16 19:03 114/64 98 11/23/16 18:03 121/65 99 11/23/16 17:33 129/72 98 11/23/16 17:03 127/74 98 11/23/16 16:48 126/71 96 11/23/16 16:33 138/72 100 11/23/16 16:18 133/82 100 11/23/16 16:00 99 11/23/16 15:45 99 11/23/16 15:30 96 11/23/16 15:15 96 11/23/16 15:07 94 L 11/23/16 13:37 100 11/23/16 13:35 65/40 11/23/16 13:00 97 11/23/16 12:12 94 L Intake and Output 11/23/16 11/24/16 11/24/16 22:59 06:59 14:59 Intake Total 710 240 Output Total 550 300 Balance 160 -60 Intake: IV 400 Oral 240 Blood Product 310 Rc As-1 Unit 310 [id number] Output: Urine 550 300 Other: Voiding Method Indwelling Catheter Weight 62.142 kg GENERAL EXAM: Alert, active, comfortable in no apparent distress. HEAD: Normocephalic. EYES: Normal reaction of pupils, equal size. NOSE: Clear with pink turbinates. THROAT: No erythema or exudates. NECK: No masses, no JVD. CHEST: No chest wall deformity. LUNGS: Equal air entry with no crackles, wheeze, rhonchi or dullness. CVS: S1 and S2 normal with no audible mumurs, regular rhythm. ABDOMEN: No hepatosplenomegaly, normal bowel sounds, no guarding or rigidity. EXTREMITIES: No edema noted, pedal pulses palpable. SKIN: No rashes CENTRAL NERVOUS SYSTEM: No focal deficits, tone is normal in all 4 extremities. Results CBC & Chem 7: 11/24/16 05:45 11/23/16 09:54 Labs: Abnormal Lab Results - Last 24 Hours (Table) 11/23/16 11/23/16 11/23/16 Range/Units 09:54 09:54 14:20 RBC 2.78 L (3.80-5.40) m/uL Hgb 8.2 L D (11.4-16.0) gm/dL Hct 24.1 L (34.0-46.0) % Plt Count 121 L (150-450) k/uL BUN 19 H (7-17) mg/dL Glucose 118 H (74-99) mg/dL Total Protein 5.6 L (6.3-8.2) g/dL Crossmatch See Detail 11/24/16 Range/Units 05:45 RBC 3.26 L (3.80-5.40) m/uL Hgb 9.7 L D (11.4-16.0) gm/dL Hct 28.6 L (34.0-46.0) % Plt Count 116 L (150-450) k/uL BUN (7-17) mg/dL Glucose (74-99) mg/dL Total Protein (6.3-8.2) g/dL Crossmatch Comments: Ultrasound reviewed Thrombosis Risk Factor Assmnt - DVT/VTE Prophylaxis DVT/VTE Prophylaxis: Mechanical Prophylaxis ordered - Choose All That Apply Each Factor Represents 1 point: Varicose veins Each Risk Factor Represents 2 Points: Age 61-74 years Other congenital or acquired thrombophilia - If yes, enter type in comment: No Thrombosis Risk Factor Assessment Total Risk Factor Score: 3 Thrombosis Risk Factor Assessment Level: Moderate Risk Assessment and Plan Plan: Assessment Vaginal laceration requiring surgical repair Acute blood loss anemia Atrial fibrillation GERD History of abdominal hernias Plan Medications have been reviewed and will be continued as ordered. Continue to monitor for any signs and symptoms of bleeding as well as hemoglobin. As long as the patient's hemoglobin remains stable as well as no bleeding the patient could continue with her pradaxa as previously prescribed. Continue with pulmonary hygiene, coughing and deep breathing exercises, and supportive care. GI and DVT prophylaxis. We will continue to monitor labs/results and adjust treatment as necessary. Further recommendations pending. We are covering for Dr. Mata over the weekend who will return on Saturday. I performed an examination of the patient and discussed their management with the nurse practitioner. I have reviewed the nurse practitioner's note and agree with the documented findings and plan of care.
--- NOTE | 2016-11-24 10:31 | P.PN ---
Subjective Principal diagnosis: Vaginal bleeding, vaginal laceration She reports resting well overnight. No pain other than some vaginal pressure from the packing. Objective - Vital Signs Vital signs: Vital Signs Temp 98.1 F 11/24/16 08:50 Pulse 72 11/24/16 09:26 Resp 18 11/24/16 09:26 BP 100/53 11/24/16 09:26 Pulse Ox 94 L 11/24/16 08:50 Intake & Output 11/23/16 11/24/16 11/24/16 18:59 06:59 18:59 Intake Total 3920 240 Output Total 725 300 Balance 3195 -60 Weight 62.142 kg 62.142 kg Intake: IV 3300 Oral 240 Blood Product 620 Rc As-1 Unit 310 [id number] Rc As-1 Unit 310 [id number] Output: Urine 575 300 Estimated Blood Loss 150 Other: Voiding Method Indwelling Catheter Indwelling Catheter - Exam Targeted physical exam is performed. Abdomen is soft and nontender. Vaginal packing is removed. There is some bright red blood on the packing and a scant amount on the pad. With removal of packing she is observed and no active bleeding is noted. Greater than 500 mL of clear urine present in the Rosen catheter. - Labs CBC & Chem 7: 11/24/16 05:45 11/23/16 09:54 Labs: Abnormal Lab Results - Last 24 Hours (Table) 11/23/16 11/23/16 11/23/16 Range/Units 09:54 09:54 14:20 RBC 2.78 L (3.80-5.40) m/uL Hgb 8.2 L D (11.4-16.0) gm/dL Hct 24.1 L (34.0-46.0) % Plt Count 121 L (150-450) k/uL BUN 19 H (7-17) mg/dL Glucose 118 H (74-99) mg/dL Total Protein 5.6 L (6.3-8.2) g/dL Crossmatch See Detail 11/24/16 Range/Units 05:45 RBC 3.26 L (3.80-5.40) m/uL Hgb 9.7 L D (11.4-16.0) gm/dL Hct 28.6 L (34.0-46.0) % Plt Count 116 L (150-450) k/uL BUN (7-17) mg/dL Glucose (74-99) mg/dL Total Protein (6.3-8.2) g/dL Crossmatch Assessment and Plan (1) Vaginal laceration Status: Acute Plan: 66-year-old woman status post repair of vaginal laceration secondary to vaginal trauma. Bleeding compounded by anticoagulation. Her predaxa has been held and I would recommend continuing to hold this until all bleeding resolved. We will discontinue her Rosen catheter and have her ambulate and monitor for bleeding. If bleeding is minimal her medications may be restarted under the supervision of her medical physicians. Should the bleeding resume in a significant fashion repacking of the vagina may be necessary. Her hemoglobin this morning is stable status post 2 units packed red blood cells.
[2016-11-24] MEDS: PROPAFENONE 150 MG TAB PO SCH (10:32)
[2016-11-24] MEDS ORDERED: MULTIVITAMINS, THERA 1 EACH TAB PO SCH (12:00)
[2016-11-24 12:33] VITALS: BP 122/58; PULSE 65; RESP 17; TEMP 97.1
== END 2016-11-24 15:30 | disposition home or self-care (01) | DRG 982 ==
LOC: EC 09:29 → 6PED 13:07 → OBSVTOIN 16:03
PROVIDERS: ADMIT Obstetrics & Gynecology; ATTEND Obstetrics & Gynecology
PROC: 0TJB8ZZ Inspection of Bladder, Via Natural or Artificial Opening Endoscopic (ICD-10-PCS; 2016-11-23)
PROC: 0UQGXZZ Repair Vagina, External Approach (ICD-10-PCS; principal; 2016-11-23 12:00)
DX: S31.41XA Laceration without foreign body of vagina and vulva, initial encounter (principal); D62 Acute posthemorrhagic anemia; I48.91 Unspecified atrial fibrillation; I10 Essential (primary) hypertension; F32.9 Major depressive disorder, single episode, unspecified; F41.9 Anxiety disorder, unspecified; K21.9 Gastro-esophageal reflux disease without esophagitis; M10.9 Gout, unspecified; I83.90 Asymptomatic varicose veins of unspecified lower extremity; R00.1 Bradycardia, unspecified; N95.2 Postmenopausal atrophic vaginitis; Z79.01 Long term (current) use of anticoagulants; Z79.899 Other long term (current) drug therapy; X58.XXXA Exposure to other specified factors, initial encounter; Y92.9 Unspecified place or not applicable
CPT/HCPCS: 36415; 76830; 80053; 85025; 85027; 85610; 85730; 86850; 86900; 86901; 86920; 93005; 96360; 96361; 99285

== ENCOUNTER → 2017-01-28 | Outpatient (CLI) | payer MEDICARE, OTHER ==
[2017-01-28 13:18] VITALS: BP 152/72; PULSE 59; TEMP 98.7; BMI 28.7
--- NOTE | 2017-01-28 13:47 | P.HPBAR ---
Bariatric H&P - History & Physicial H&P Date: 01/28/17 History & Physicial: Visit/CC: follow up visit Patient initial contact: Initial weight: 96.162 kg Initial weight in pounds: 212.00 Height: 4 ft 11 in Initial BMI: 42.8 Last weight: 142 Current weight: 64.501 kg Current weight in pounds: 142.20 Current BMI: 28.7 [place] body weight (based on NIH guidelines): 43.091 kg Excess body weight loss: 59.6% The patient is a 66 year-old F who presents for Bariatric Assessment. Patient presents today for sleeve gastrectomy follow-up. Her weight has remained stable. She's had some complaints of knee and ankle pain. Past Medical History Past Medical History: Atrial Fibrillation, GERD/Reflux, Hypertension, Musculoskeletal Disorder, Pneumonia, Renal Disease Additional Past Medical History / Comment(s): BORN W/ RT KIDNEY ONLY. Gout LT GREAT TOE. PANNICULUS on 03/26/2016, ABD HERNIA'S X3 CURRENTLY. VARICOSE VEIN. History of Any Multi-Drug Resistant Organisms: None Reported Past Surgical History: Bariatric Surgery, Section, Cholecystectomy, Hernia Repair, Hysterectomy Additional Past Surgical History / Comment(s): 2010 Panniculectomy; Several Hernia Surgeries; Gastric Sleeve 2013. Panniculectomy and hernia repair 2015 Past Anesthesia/Blood Transfusion Reactions: No Reported Reaction Past Psychological History: Anxiety, Depression Additional Psychological History / Comment(s): PAST ANXIETY. Smoking Status: Never smoker Past Alcohol Use History: None Reported Past Drug Use History: None Reported - Past Family History Father Family Medical History: Diabetes Mellitus Mother Family Medical History: Cancer, Liver Disease Surgical - Exam Vital Signs Temp Pulse BP 98.7 F 59 L 152/72 01/28/17 13:15 01/28/17 13:15 01/28/17 13:15 - General well developed, no distress - Eyes PERRL left: ptosis - Abdomen Abdomen: soft, non tender Bariatric Assessment & Plan Plan: The patient is doing well with sleeve yesterday. Her arthritis is will be observed. She'll follow-up in 2 months. Bariatric Checklist Checklist: Plan: Checklist: EGD: 1. Hiatal hernia: 2. H. Pylori: HgbA1c: Vitamin D: Smoking: Never smoker Primary care physician referral: lori avelar ([facility]) Psychiatry clearance: Cardiology clearance: Sleep study: Diet journal: VTE risk score: VTE risk level: Rehab needs at discharge:
== END | disposition home or self-care (01) ==
LOC: BARWHC3 12:33
PROVIDERS: ATTEND Surgery
DX: Z48.815 Encounter for surgical aftercare following surgery on the digestive system (principal); Z98.84 Bariatric surgery status
CPT/HCPCS: 99211

== ENCOUNTER → 2017-02-04 | Outpatient (CLI) | payer MEDICARE, OTHER ==
--- NOTE | 2017-02-05 12:54 | MM ---
Reason for exam: screening (asymptomatic). Last mammogram was performed 4 years ago. History: Patient is postmenopausal. Physical Findings: A clinical breast exam by your physician is recommended on an annual basis and results should be correlated with mammographic findings. MG Screening Mammo w CAD Bilateral CC and MLO view(s) were taken. Prior study comparison: February 16, 2013, bilateral digital screening mammo w/CAD. September 21, 2009, bilateral digital screening mammogram. There are scattered fibroglandular densities. Skin folds on CC views. No significant changes when compared with prior studies. ASSESSMENT: Benign, BI-RAD 2 RECOMMENDATION: Routine screening mammogram of both breasts in 1 year.
== END | disposition home or self-care (01) ==
LOC: RADMAMWWP 10:39
PROVIDERS: ATTEND Family Medicine
DX: Z12.31 Encounter for screening mammogram for malignant neoplasm of breast (principal)

== ENCOUNTER → 2017-06-12 | Outpatient (CLI) | payer MEDICARE, OTHER ==
[2017-06-12 13:21] LABS: Anisocytosis Slight; Basophils # (A) 0.1 k/uL (0-0.2); Basophils % (A) 1 %; Eosinophils # (A) 0.2 k/uL (0-0.7); Eosinophils % (A) 2 %; HCT 40.2 % (34.0-46.0); HGB 12.6 gm/dL (11.4-16.0); Hypochromasia Slight; Lymphocytes # (A) 2.1 k/uL (1.0-4.8); Lymphocytes % (A) 28 %; MCHC 31.3 g/dL (31.0-37.0); MCV 86.3 fL (80.0-100.0); Mean Platelet Volume 7.3; Monocytes # (A) 0.4 k/uL (0-1.0); Monocytes % (A) 5 %; Neutrophils # (A) 4.7 k/uL (1.3-7.7); Neutrophils % (A) 62 %; Platelet Count 230 k/uL (150-450); RBC 4.66 m/uL (3.80-5.40); RDW 16.3 % (11.5-15.5); WBC 7.6 k/uL (3.8-10.6)
[2017-06-12 13:29] LABS: Uric Acid 3.2 mg/dL (3.7-7.4)
[2017-06-12 13:49] LABS: C Reactive Protein 9.6 mg/L (<10.0)
[2017-06-12 15:35] LABS: Erythrocyte Sedimentation Rate 26 mm/hr (0-20)
== END | disposition home or self-care (01) ==
LOC: LABWHC1 12:51
PROVIDERS: ATTEND Podiatrist Foot & Ankle Surgery
DX: M19.90 Unspecified osteoarthritis, unspecified site (principal); B99.9 Unspecified infectious disease
CPT/HCPCS: 36415; 84550; 85025; 85652; 86140; 86431; 87070; 87077; 87186; 87205

== ENCOUNTER → 2017-06-19 | Outpatient (CLI) | payer MEDICARE, OTHER ==
--- NOTE | 2017-06-19 07:44 | XR ---
EXAMINATION TYPE: XR foot complete LT DATE OF EXAM: 06/19/2017 COMPARISON: NONE HISTORY: 66-year-old female second toe swollen and red, evaluate for osteomyelitis TECHNIQUE: 3 views FINDINGS: Soft tissue swelling of the second toe. The AP and lateral views demonstrate tuftal osteolysis. Degen erative changes at the second DIP joint. Mild degenerative change first MTP joint. Vascular calcifica tions suggest underlying diabetes and/or chronic kidney disease. Small plantar calcaneal spur. Some d orsal mid foot degenerative spurring. IMPRESSION: Radiographic findings compatible with distal phalangeal tuftal osteomyelitis of the second toe.
--- NOTE | 2017-06-19 14:39 | NM ---
EXAMINATION TYPE: NM bone 3 phase DATE OF EXAM: 06/19/2017 COMPARISON: Radiograph same day HISTORY: 66-year-old female open sore right second toe, evaluate for osteomyelitis Triple phase bone scintigraphy was performed following the injection of 23.3 mCi Tc 99m MDP. Flow, po ol images and 3.75 hours post injection images acquired. FINDINGS: On flow imaging, there is hyperemia to the right forefoot. The tracer activity becomes more focally localized to the right second toe on follow-up imaging. On delayed imaging, there is focal increased tracer activity involving the tip of the right second to e. Increased delayed activity at the bilateral mid feet likely on a degenerative basis. IMPRESSION: 1. Three-phase bone scan abnormality of the distal aspect of the right second toe compatible with ost eomyelitis. 2. Delayed activity in the bilateral mid feet suggest degenerative change, possibly on a neuropathic basis if the patient has advanced diabetes.
== END | disposition home or self-care (01) ==
LOC: RADNMMAIN 07:11
PROVIDERS: ATTEND Podiatrist Foot & Ankle Surgery
DX: R93.6 Abnormal findings on diagnostic imaging of limbs (principal); M86.8X7 Other osteomyelitis, ankle and foot
CPT/HCPCS: 73630; 78315; A9503

== ENCOUNTER → 2017-07-01 | Outpatient (CLI) | payer MEDICARE, OTHER ==
[2017-07-01 13:30] VITALS: BP 133/62; PULSE 59; RESP 16; TEMP 98.6; BMI 29.7
--- NOTE | 2017-07-01 16:39 | P.HPBAR ---
Bariatric H&P - History & Physicial H&P Date: 07/01/17 History & Physicial: Visit/CC: brionna follow up Patient initial contact: Initial weight: 96.162 kg Initial weight in pounds: 212.00 Height: 5 ft Initial BMI: 41.3 Last weight: Current weight: 69.003 kg Current weight in pounds: 152.13 Current BMI: 29.7 [place] body weight (based on NIH guidelines): 45.359 kg Excess body weight loss: 53.4% The patient is a 66 year-old F who presents for Bariatric Assessment. Patient rents today for sleeve gastric a follow-up. She is having issues with osteomyelitis of her right third toe. She's had some minimal GERD. Past Medical History Past Medical History: Atrial Fibrillation, GERD/Reflux, Hypertension, Musculoskeletal Disorder, Pneumonia, Renal Disease Additional Past Medical History / Comment(s): BORN WITH ONLY RIGHT KIDNEY; Gout LT GREAT TOE. PANNICULUS on 03/26/2016, ABD HERNIA'S X3 CURRENTLY. VARICOSE VEIN. History of Any Multi-Drug Resistant Organisms: None Reported Past Surgical History: Bariatric Surgery, Section, Cholecystectomy, Hernia Repair, Hysterectomy Additional Past Surgical History / Comment(s): 2010 Panniculectomy; Several Hernia Surgeries; Gastric Sleeve 2013. Panniculectomy and hernia repair 2015 Past Anesthesia/Blood Transfusion Reactions: No Reported Reaction Past Psychological History: Anxiety, Depression Additional Psychological History / Comment(s): PAST ANXIETY. Smoking Status: Never smoker Past Alcohol Use History: None Reported Past Drug Use History: None Reported - Past Family History Father Family Medical History: Diabetes Mellitus Mother Family Medical History: Cancer, Liver Disease Surgical - Exam Vital Signs Temp Pulse Resp BP 98.6 F 59 L 16 133/62 07/01/17 13:28 07/01/17 13:28 07/01/17 13:28 07/01/17 13:28 - General well developed, no distress - Eyes PERRL - ENT normal pinna - Neck no masses - Respiratory normal expansion - Cardiovascular Rhythm: regular - Abdomen Abdomen: soft, non tender Bariatric Assessment & Plan Plan: Status post sleeve gastrectomy. Patient is some minimal GERD. She will follow- up in one month. Bariatric Checklist Checklist: Plan: Checklist: EGD: 1. Hiatal hernia: 2. H. Pylori: HgbA1c: Vitamin D: Smoking: Never smoker Primary care physician referral: lori avelar ([facility]) Psychiatry clearance: Cardiology clearance: Sleep study: Diet journal: VTE risk score: VTE risk level: Rehab needs at discharge:
== END | disposition home or self-care (01) ==
LOC: BARWHC3 13:07
PROVIDERS: ATTEND Surgery
DX: Z48.815 Encounter for surgical aftercare following surgery on the digestive system (principal); F41.9 Anxiety disorder, unspecified; F32.9 Major depressive disorder, single episode, unspecified; Z98.84 Bariatric surgery status; Z90.49 Acquired absence of other specified parts of digestive tract; Z98.890 Other specified postprocedural states
CPT/HCPCS: 99211

== ENCOUNTER → 2017-12-09 | Outpatient (CLI) | payer MEDICARE, OTHER ==
[2017-12-09 14:29] LABS: HCT 38.7 % (34.0-46.0); HGB 12.6 gm/dL (11.4-16.0); MCH 28.1 pg (25.0-35.0); MCHC 32.6 g/dL (31.0-37.0); MCV 86.3 fL (80.0-100.0); Mean Platelet Volume 7.1; Platelet Count 185 k/uL (150-450); RBC 4.49 m/uL (3.80-5.40); RDW 14.9 % (11.5-15.5); WBC 5.7 k/uL (3.8-10.6)
[2017-12-09 14:47] LABS: ALT 44 U/L (9-52); AST 30 U/L (14-36); Albumin 3.7 g/dL (3.5-5.0); Alkaline Phosphatase 79 U/L (38-126); Anion Gap 5 mmol/L; Blood Urea Nitrogen 17 mg/dL (7-17); Calcium 9.3 mg/dL (8.4-10.2); Carbon Dioxide 33 mmol/L (22-30); Chloride 102 mmol/L (98-107); Glucose 78 mg/dL (74-99); Potassium 4.3 mmol/L (3.5-5.1); Sodium 140 mmol/L (137-145); Total Bilirubin 0.4 mg/dL (0.2-1.3); Total Protein 5.8 g/dL (6.3-8.2)
[2017-12-09 18:50] VITALS: BP 145/74; PULSE 54; RESP 15; BMI 30.1
[2017-12-09 19:40] LABS: Iron Saturation 14.61 (12.00-45.00)
[2017-12-09 19:48] LABS: Vitamin D 25 Hydroxy 27.4 ng/mL (30.0-100.0)
--- NOTE | 2017-12-10 11:04 | P.HPBAR ---
Bariatric H&P - History & Physicial H&P Date: 12/09/17 History & Physicial: Visit/CC: f/u weight check Patient initial contact: Initial weight: 96.162 kg Initial weight in pounds: 212.00 Height: 5 ft Initial BMI: 41.3 Last weight: Current weight: 69.944 kg Current weight in pounds: 154.20 Current BMI: 30.1 [place] body weight (based on NIH guidelines): 45.359 kg Excess body weight loss: 51.6% The patient is a 67 year-old F who presents for Bariatric Assessment. She presents today for sleeve gastrectomy.. She's had some mild GERD. She relates had no significant dysphagia. Her weight is stable. Past Medical History Past Medical History: Atrial Fibrillation, GERD/Reflux, Hypertension, Musculoskeletal Disorder, Pneumonia, Renal Disease Additional Past Medical History / Comment(s): BORN WITH ONLY RIGHT KIDNEY; Gout LT GREAT TOE. PANNICULUS on 03/26/2016, ABD HERNIA'S X3 CURRENTLY. VARICOSE VEIN. History of Any Multi-Drug Resistant Organisms: None Reported Past Surgical History: Bariatric Surgery, Section, Cholecystectomy, Hernia Repair, Hysterectomy Additional Past Surgical History / Comment(s): 2010 Panniculectomy; Several Hernia Surgeries; Gastric Sleeve 2013. Panniculectomy and hernia repair 2015 Past Anesthesia/Blood Transfusion Reactions: No Reported Reaction Smoking Status: Never smoker - Past Family History Father Family Medical History: Diabetes Mellitus Mother Family Medical History: Cancer, Liver Disease Surgical - Exam Vital Signs Pulse Resp BP 54 L 15 145/74 12/09/17 17:29 12/09/17 17:29 12/09/17 17:29 - General well developed, no distress - Eyes PERRL - Abdomen Abdomen: soft, non tender Results - Labs 12/09/17 14:07 12/09/17 14:07 Abnormal Lab Results - Last 24 Hours (Table) 12/09/17 12/09/17 Range/Units 14:07 14:07 Carbon Dioxide 33 H (22-30) mmol/L Total Protein 5.8 L (6.3-8.2) g/dL Vitamin D 25-Hydroxy 27.4 L (30.0-100.0) ng/mL Diabetes panel 12/09/17 Range/Units 14:07 Sodium 140 (137-145) mmol/L Potassium 4.3 (3.5-5.1) mmol/L Chloride 102 (98-107) mmol/L Carbon Dioxide 33 H (22-30) mmol/L BUN 17 (7-17) mg/dL Creatinine 0.58 (0.52-1.04) mg/dL Glucose 78 (74-99) mg/dL Calcium 9.3 (8.4-10.2) mg/dL AST 30 (14-36) U/L ALT 44 (9-52) U/L Alkaline Phosphatase 79 (38-126) U/L Total Protein 5.8 L (6.3-8.2) g/dL Albumin 3.7 (3.5-5.0) g/dL Calcium panel 12/09/17 Range/Units 14:07 Calcium 9.3 (8.4-10.2) mg/dL Albumin 3.7 (3.5-5.0) g/dL Pituitary panel 12/09/17 Range/Units 14:07 Sodium 140 (137-145) mmol/L Potassium 4.3 (3.5-5.1) mmol/L Chloride 102 (98-107) mmol/L Carbon Dioxide 33 H (22-30) mmol/L BUN 17 (7-17) mg/dL Creatinine 0.58 (0.52-1.04) mg/dL Glucose 78 (74-99) mg/dL Calcium 9.3 (8.4-10.2) mg/dL Adrenal panel 12/09/17 Range/Units 14:07 Sodium 140 (137-145) mmol/L Potassium 4.3 (3.5-5.1) mmol/L Chloride 102 (98-107) mmol/L Carbon Dioxide 33 H (22-30) mmol/L BUN 17 (7-17) mg/dL Creatinine 0.58 (0.52-1.04) mg/dL Glucose 78 (74-99) mg/dL Calcium 9.3 (8.4-10.2) mg/dL Total Bilirubin 0.4 (0.2-1.3) mg/dL AST 30 (14-36) U/L ALT 44 (9-52) U/L Alkaline Phosphatase 79 (38-126) U/L Total Protein 5.8 L (6.3-8.2) g/dL Albumin 3.7 (3.5-5.0) g/dL Bariatric Assessment & Plan Plan: Status post sleeve gastric. Patient that excellent weight loss. Her GERD is minimal will be observed. She'll follow-up in 2 months. Bariatric Checklist Checklist: Plan: Checklist: EGD: 1. Hiatal hernia: 2. H. Pylori: HgbA1c: Vitamin D: Smoking: Never smoker Primary care physician referral: lori avelar ([facility]) Psychiatry clearance: Cardiology clearance: Sleep study: Diet journal: VTE risk score: VTE risk level: Rehab needs at discharge:
== END | disposition home or self-care (01) ==
LOC: BARWHC3 12:54
PROVIDERS: ATTEND Surgery
DX: Z09 Encounter for follow-up examination after completed treatment for conditions other than malignant neoplasm (principal); E66.01 Morbid (severe) obesity due to excess calories; K21.9 Gastro-esophageal reflux disease without esophagitis; E55.9 Vitamin D deficiency, unspecified; Z98.84 Bariatric surgery status; Z90.49 Acquired absence of other specified parts of digestive tract; Z90.710 Acquired absence of both cervix and uterus; Z98.890 Other specified postprocedural states; Z68.30 Body mass index [BMI] 30.0-30.9, adult
CPT/HCPCS: 80053; 83540; 83550; 85027; 82306; 36415; G0463; 99211

== ENCOUNTER → 2018-03-31 | Outpatient (CLI) | payer MEDICARE, OTHER ==
[2018-03-31 15:19] VITALS: BP 144/64; PULSE 56; RESP 16; TEMP 98.1; BMI 30.2
--- NOTE | 2018-03-31 16:39 | P.HPBAR ---
Bariatric H&P - History & Physicial H&P Date: 03/31/18 History & Physicial: Visit/CC: sleeve/panni follow-up Patient initial contact: Initial weight: 96.162 kg Initial weight in pounds: 212.00 Height: 5 ft Initial BMI: 41.3 Last weight: Current weight: 70.307 kg Current weight in pounds: 155.00 Current BMI: 30.2 [place] body weight (based on NIH guidelines): 45.359 kg Excess body weight loss: 50.8% The patient is a 67 year-old F who presents for Bariatric Assessment. Patient presents today for sleeve gastrectomy follow-up. She had some complaints of some epigastric pain and nausea a week ago. She's had no further complaints for the last 7-10 days. Patient states that she is eating well. Past Medical History Past Medical History: Atrial Fibrillation, GERD/Reflux, Hypertension, Musculoskeletal Disorder, Pneumonia, Renal Disease Additional Past Medical History / Comment(s): BORN WITH ONLY RIGHT KIDNEY; Gout LT GREAT TOE. PANNICULUS on 03/26/2016, ABD HERNIA'S X3 CURRENTLY. VARICOSE VEIN. History of Any Multi-Drug Resistant Organisms: None Reported Past Surgical History: Bariatric Surgery, Section, Cholecystectomy, Hernia Repair, Hysterectomy Additional Past Surgical History / Comment(s): 2010 Panniculectomy; Several Hernia Surgeries; Gastric Sleeve 2013. Panniculectomy and hernia repair 2015 Past Anesthesia/Blood Transfusion Reactions: No Reported Reaction Past Psychological History: Anxiety, Depression Additional Psychological History / Comment(s): PAST ANXIETY. Smoking Status: Never smoker Past Alcohol Use History: None Reported Past Drug Use History: None Reported - Past Family History Father Family Medical History: Diabetes Mellitus Mother Family Medical History: Cancer, Liver Disease Surgical - Exam Vital Signs Temp Pulse Resp BP 98.1 F 56 L 16 144/64 03/31/18 15:17 03/31/18 15:17 03/31/18 15:17 03/31/18 15:17 - General well developed, no distress - Eyes PERRL - ENT normal pinna - Neck no masses - Respiratory normal expansion - Cardiovascular Rhythm: regular - Abdomen Abdomen: soft, non tender Bariatric Assessment & Plan Plan: Status post sleeve gastric. Patient's GERD symptoms have been resolved. She' ll follow-up in one month for follow-up. Bariatric Checklist Checklist: Plan: Checklist: EGD: 1. Hiatal hernia: 2. H. Pylori: HgbA1c: Vitamin D: Smoking: Never smoker Primary care physician referral: lori avelar ([facility]) Psychiatry clearance: Cardiology clearance: Sleep study: Diet journal: VTE risk score: VTE risk level: Rehab needs at discharge:
== END | disposition home or self-care (01) ==
LOC: BARWHC3 14:32
PROVIDERS: ATTEND Surgery
DX: Z48.815 Encounter for surgical aftercare following surgery on the digestive system (principal); Z98.84 Bariatric surgery status; Z90.49 Acquired absence of other specified parts of digestive tract
CPT/HCPCS: 99211

== ENCOUNTER → 2018-05-05 | Outpatient (CLI) | payer MEDICARE, OTHER ==
[2018-05-05 16:01] VITALS: BP 157/84; PULSE 65; TEMP 98.1; BMI 30.2
--- NOTE | 2018-05-09 14:45 | P.HPBAR ---
Bariatric H&P - History & Physicial H&P Date: 05/05/18 History & Physicial: Visit/CC: follow up visit Patient initial contact: Initial weight: 96.162 kg Initial weight in pounds: 212.00 Height: 5 ft Initial BMI: 41.3 Last weight: Current weight: 70.307 kg Current weight in pounds: 155.00 Current BMI: 30.2 [place] body weight (based on NIH guidelines): 45.359 kg Excess body weight loss: 50.8% The patient is a 67 year-old F who presents for Bariatric Assessment. The patient presents today for gastric sleeve follow-up. She has had some minimal GERD. She denies any significant dysphagia. He has had some complaints of intermittent abdominal pain. She has no pain today. Past Medical History Past Medical History: Atrial Fibrillation, GERD/Reflux, Hypertension, Musculoskeletal Disorder, Pneumonia, Renal Disease Additional Past Medical History / Comment(s): BORN WITH ONLY RIGHT KIDNEY; Gout LT GREAT TOE. PANNICULUS on 03/26/2016, ABD HERNIA'S X3 CURRENTLY. VARICOSE VEIN. History of Any Multi-Drug Resistant Organisms: None Reported Past Surgical History: Bariatric Surgery, Section, Cholecystectomy, Hernia Repair, Hysterectomy Additional Past Surgical History / Comment(s): 2010 Panniculectomy; Several Hernia Surgeries; Gastric Sleeve 2013. Panniculectomy and hernia repair 2015 Past Anesthesia/Blood Transfusion Reactions: No Reported Reaction Smoking Status: Never smoker - Past Family History Father Family Medical History: Diabetes Mellitus Mother Family Medical History: Cancer, Liver Disease Surgical - Exam Vital Signs Temp Pulse BP 98.1 F 65 157/84 05/05/18 15:52 05/05/18 15:52 05/05/18 15:52 - General well developed, well nourished, no distress - Eyes PERRL - ENT normal pinna - Neck no masses - Respiratory normal expansion - Cardiovascular Rhythm: regular - Abdomen Abdomen: soft, non tender Bariatric Assessment & Plan Plan: Status post sleeve yesterday. Patient is doing quite well. She will follow-up in 4 weeks. Her GERD is minimal will be observed. Bariatric Checklist Checklist: Plan: Checklist: EGD: 1. Hiatal hernia: 2. H. Pylori: HgbA1c: Vitamin D: Smoking: Never smoker Primary care physician referral: lori avelar ([facility]) Psychiatry clearance: Cardiology clearance: Sleep study: Diet journal: VTE risk score: VTE risk level: Rehab needs at discharge:
== END | disposition home or self-care (01) ==
LOC: BARWHC3 13:17
PROVIDERS: ATTEND Surgery
DX: Z48.815 Encounter for surgical aftercare following surgery on the digestive system (principal); Z98.84 Bariatric surgery status; Z90.49 Acquired absence of other specified parts of digestive tract; Z98.890 Other specified postprocedural states; Z90.710 Acquired absence of both cervix and uterus
CPT/HCPCS: 99211

== ENCOUNTER → 2018-10-06 | Outpatient (CLI) | payer MEDICARE, OTHER ==
[2018-10-06 13:39] VITALS: BP 161/78; PULSE 55; RESP 16; TEMP 98.3; BMI 30.4
--- NOTE | 2018-10-20 15:12 | P.HPBAR ---
Bariatric H&P - History & Physicial H&P Date: 10/06/18 History & Physicial: Visit/CC: sleeve/panni follow-up Patient initial contact: Initial weight: 96.162 kg Initial weight in pounds: 212.00 Height: 5 ft Initial BMI: 41.3 Last weight: Current weight: 70.562 kg Current weight in pounds: 155.56 Current BMI: 30.4 [place] body weight (based on NIH guidelines): 45.359 kg Excess body weight loss: 50.3% The patient is a 67 year-old F who presents for Bariatric Assessment. Patient presents today for sleeve gastrectomy fall. She's had complaints of GERD. Past Medical History Past Medical History: Atrial Fibrillation, GERD/Reflux, Hypertension, Musculoskeletal Disorder, Pneumonia, Renal Disease Additional Past Medical History / Comment(s): BORN WITH ONLY RIGHT KIDNEY; Gout LT GREAT TOE. PANNICULUS on 03/26/2016, ABD HERNIA'S X3 CURRENTLY. VARICOSE VEIN. History of Any Multi-Drug Resistant Organisms: None Reported Past Surgical History: Bariatric Surgery, Section, Cholecystectomy, Hernia Repair, Hysterectomy Additional Past Surgical History / Comment(s): 2010 Panniculectomy; Several Hernia Surgeries; Gastric Sleeve 2013. Panniculectomy and hernia repair 03/26/2016 Past Anesthesia/Blood Transfusion Reactions: No Reported Reaction Past Psychological History: Anxiety, Depression Additional Psychological History / Comment(s): PAST ANXIETY. Smoking Status: Never smoker Past Alcohol Use History: None Reported Past Drug Use History: None Reported - Past Family History Father Family Medical History: Diabetes Mellitus Mother Family Medical History: Cancer, Liver Disease Surgical - Exam Vital Signs Temp Pulse Resp BP 98.3 F 55 L 16 161/78 10/06/18 13:36 10/06/18 13:36 10/06/18 13:36 10/06/18 13:36 - General well developed, well nourished, no distress - Abdomen Abdomen: soft, non tender Bariatric Assessment & Plan Plan: Status post sleeve gastrectomy. Patient appears minimal will be observed. She'll follow-up in 2 months. Bariatric Checklist Checklist: Plan: Checklist: EGD: 1. Hiatal hernia: 2. H. Pylori: HgbA1c: Vitamin D: Smoking: Never smoker Primary care physician referral: lori avelar ([facility]) Psychiatry clearance: Cardiology clearance: Sleep study: Diet journal: VTE risk score: VTE risk level: Rehab needs at discharge:
== END | disposition home or self-care (01) ==
LOC: BARWHC3 12:36
PROVIDERS: ATTEND Surgery
DX: Z48.815 Encounter for surgical aftercare following surgery on the digestive system (principal); E66.01 Morbid (severe) obesity due to excess calories; Z68.30 Body mass index [BMI] 30.0-30.9, adult; Z98.84 Bariatric surgery status
CPT/HCPCS: 97803; G0463; 99211

== ENCOUNTER 2020-02-12 11:13 | Emergency (ER) | payer MEDICARE, OTHER ==
--- NOTE | 2020-02-12 12:12 | ED ---
Fall HPI - General Chief Complaint: Fall Stated Complaint: fall/leg bruising & swelling Time Seen by Provider: 02/12/20 11:22 Source: patient Mode of arrival: wheelchair Limitations: no limitations - History of Present Illness Initial Comments: This a 69-year-old female presents emergency Department chief complaint of a fall. Patient states she fell on Saturday and again yesterday. Patient states she fell on same hip. There is no injury no loss conscious. Patient does take Eliquis was found to have bruising to her right thigh she states it seems to be going down. Patient denies any other complaints of abdominal pain no chest pain or shortness of breath patient is able to ambulate with minimal difficulty. - Related Data Home Medications Medication Instructions Recorded Confirmed Cholecalciferol [Vitamin D3] 400 unit PO DAILY 11/29/15 10/06/18 Cyanocobalamin [Vitamin B-12] 1,000 mcg PO DAILY 11/29/15 10/06/18 FLUoxetine HCL [PROzac] 20 mg PO HS 11/29/15 10/06/18 FLUoxetine HCL [PROzac] 40 mg PO QAM 11/29/15 10/06/18 Gabapentin [Neurontin] 300 mg PO HS 11/29/15 10/06/18 Melatonin 10 mg PO HS 11/29/15 10/06/18 Multivitamin with Iron 1 tab PO DAILY 11/29/15 10/06/18 [Multivitamins with Iron] Pantoprazole Sodium [Protonix] 40 mg PO DAILY 11/29/15 10/06/18 Potassium Chloride ER [K-Dur 20] 20 meq PO BID 11/29/15 10/06/18 allopurinoL [Zyloprim] 300 mg PO DAILY 11/29/15 10/06/18 Biotin 5 mg PO DAILY 03/26/16 10/06/18 Furosemide [Lasix] 20 mg PO QAM 07/23/16 10/06/18 Albuterol Nebulized [Ventolin 2.5 mg INHALATION RT-Q6H PRN 11/23/16 10/06/18 Nebulized] Calcium Citrate 500 mg PO DAILY 11/23/16 10/06/18 HYDROcodone/APAP 7.5-325MG [[place] 1 tab PO BID PRN 11/23/16 10/06/18 7.5-325] Metoprolol Succinate [Toprol XL] 12.5 mg PO DAILY 11/23/16 10/06/18 Propafenone [Rythmol] 150 mg PO BID 11/23/16 10/06/18 Vitamin B Complex 1 cap PO DAILY 11/23/16 10/06/18 buPROPion [Wellbutrin] 75 mg PO BID 11/23/16 10/06/18 Apixaban [Eliquis] 5 mg PO BID 12/09/17 10/06/18 Previous Rx's Medication Instructions Recorded amLODIPine [Norvasc] 5 mg PO DAILY #30 tab 04/02/16 Allergies Allergy/AdvReac Type Severity Reaction Status Date / Time No Known Allergies Allergy Verified 02/12/20 11:20 Review of Systems ROS Statement: Those systems with pertinent positive or pertinent negative responses have been documented in the HPI. ROS Other: All systems not noted in ROS Statement are negative. Past Medical History Past Medical History: Atrial Fibrillation, GERD/Reflux, Hypertension, Mu sculoskeletal Disorder, Pneumonia, Renal Disease Additional Past Medical History / Comment(s): BORN WITH ONLY RIGHT KIDNEY; Gout LT GREAT TOE. PANNICULUS on 03/26/2016, ABD HERNIA'S X3 CURRENTLY. VARICOSE VEIN. History of Any Multi-Drug Resistant Organisms: None Reported Past Surgical History: Bariatric Surgery, Section, Cholecystectomy, Hernia Repair, Hysterectomy Additional Past Surgical History / Comment(s): 2010 Panniculectomy; Several Hernia Surgeries; Gastric Sleeve 2013. Panniculectomy and hernia repair 03/26/2016 Past Anesthesia/Blood Transfusion Reactions: No Reported Reaction Past Psychological History: Anxiety, Depression Smoking Status: Never smoker Past Alcohol Use History: None Reported Past Drug Use History: None Reported - Past Family History Father Family Medical History: Diabetes Mellitus Mother Family Medical History: Cancer, Liver Disease General Exam Limitations: physical limitation General appearance: alert, in no apparent distress Head exam: Present: atraumatic, normocephalic, normal inspection Eye exam: Present: normal appearance, PERRL, EOMI. Absent: scleral icterus, conjunctival injection, periorbital swelling ENT exam: Present: normal exam, normal oropharynx, mucous membranes moist Neck exam: Present: normal inspection, full ROM. Absent: tenderness, meningismu s, lymphadenopathy Respiratory exam: Present: normal lung sounds bilaterally. Absent: respiratory distress, wheezes, rales, rhonchi, stridor Cardiovascular Exam: Present: regular rate, normal rhythm, normal heart sounds. Absent: systolic murmur, diastolic murmur, rubs, gallop, clicks GI/Abdominal exam: Present: soft, normal bowel sounds. Absent: distended, tenderness, guarding, rebound, rigid Extremities exam: Present: other (There is some ecchymosis noted to the right thigh, right hip., Neurovascular intact patient's full range of motion right hip.) Course Vital Signs 02/12/20 11:16 Temperature 98.3 F Pulse Rate 61 Respiratory 18 Rate Blood Pressure 149/68 O2 Sat by Pulse 97 Oximetry Medical Decision Making - Medical Decision Making X-ray was reviewed there is no acute fracture. Patient has contusion, hematoma the right leg. There is concern for foreign body an x-ray though there is no physical concern on examination. Patient be discharged in stable condition return parameters discussed. Disposition Clinical Impression: Fall, Hematoma of right lower leg Disposition: HOME SELF-CARE Condition: Stable Instructions (If sedation given, give patient instructions): Contusion in Adults (ED), Hematoma (ED) Additional Instructions: Please return to the Emergency Department if symptoms worsen or any other concerns. Is patient prescribed a controlled substance at d/c from ED?: No Referrals: Anna Marie Jackson DO [Primary Care Provider] - 1-2 days Time of Disposition: 12:32
--- NOTE | 2020-02-12 12:18 | XR ---
EXAMINATION TYPE: XR Hip RT and AP Pelvis DATE OF EXAM: 02/12/2020 COMPARISON: Fall HISTORY: Pain TECHNIQUE: Two-view right hip supplemented with an AP pelvis. FINDINGS: Joint spaces preserved. No acute fractures are evident. Femoral head spurring is present co mpatible some degenerative change. There may be a tiny radiopaque foreign body present in the region of the hip joint space. IMPRESSION: 1. No acute osseous abnormality. 2. There may be a tiny radiopaque foreign body near the level of the hip.
[2020-02-12 12:44] VITALS: BP 126/74; PULSE 55; RESP 16; TEMP 96.6
== END 2020-02-12 12:44 | disposition home or self-care (01) ==
LOC: EC 11:13
DX: S70.11XA Contusion of right thigh, initial encounter (principal); S70.01XA Contusion of right hip, initial encounter; F32.9 Major depressive disorder, single episode, unspecified; I48.91 Unspecified atrial fibrillation; F41.9 Anxiety disorder, unspecified; K21.9 Gastro-esophageal reflux disease without esophagitis; I10 Essential (primary) hypertension; M10.9 Gout, unspecified; Z79.01 Long term (current) use of anticoagulants; Z79.899 Other long term (current) drug therapy; W18.30XA Fall on same level, unspecified, initial encounter; Y92.009 Unspecified place in unspecified non-institutional (private) residence as the place of occurrence of the external cause
CPT/HCPCS: 73502; 99283

== ENCOUNTER 2020-05-20 10:42 | Emergency (ER) | payer MEDICARE, OTHER ==
--- NOTE | 2020-05-20 12:06 | US ---
EXAMINATION TYPE: US venous doppler duplex LE LT DATE OF EXAM: 05/20/2020 11:57 AM COMPARISON: NONE CLINICAL HISTORY: ecchymosis, mass. edema and pain left leg. lump mid left calf for 2 days. patient o n blood thinner SIDE PERFORMED: left TECHNIQUE: The lower extremity deep venous system is examined utilizing real time linear array sonog jeanne with graded compression, doppler sonography and color-flow sonography. VESSELS IMAGED: Common Femoral Vein Deep Femoral Vein Greater Saphenous Vein * Femoral Vein Popliteal Vein Small Saphenous Vein * Proximal Calf Veins (* superficial vessels) Left Leg: no evidence of DVT. complex anechoic area within area of concern, left calf, patient denie s any injury Grayscale, color doppler, spectral doppler imaging performed of the deep veins of the left lower extr emity. There is normal flow, compressibility, vascular waveforms. Towards end of study there is sma ll to moderate size nonsimple fluid collection probable oval shaped subcutaneous hematoma. IMPRESSION: No ultrasound evidence for acute DVT in the left lower extremity.
[2020-05-20] MEDS: HYDROcodone/APAP 10-325MG 1 EACH TAB PO ONE (12:10)
--- NOTE | 2020-05-20 12:51 | ED ---
Extremity Problem HPI - General Chief complaint: Extremity Problem,Nontraumatic Stated complaint: possible blood clot Time Seen by Provider: 05/20/20 10:50 Source: patient Mode of arrival: wheelchair Limitations: physical limitation - History of Present Illness Initial comments: Patient is a 69-year-old female with past history of A. fib on Eliquis, hype rtension who presents emergency Department with reported pain and swelling to the left lower extremity. Patient denies any inciting trauma but did notice that she had a large lump over the medial aspect of her left calf night. States that it has been migrating more proximal upper leg. Reports it is tender to touch. Denies history of similar in the past. No history of DVT or PE. Denies any chest pain or shortness of breath. No fevers or chills. Denies any numbness, tingling or weakness in her lower extremity. Patient complaint with Eliquis. Denies fevers or chills. No other alleviating, precipitating or modifying factors - Related Data Home Medications Medication Instructions Recorded Confirmed Cholecalciferol [Vitamin D3] 400 unit PO DAILY 11/29/15 05/20/20 Cyanocobalamin [Vitamin B-12] 1,000 mcg PO DAILY 11/29/15 05/20/20 FLUoxetine HCL [PROzac] 40 mg PO BID 11/29/15 05/20/20 Gabapentin [Neurontin] 300 mg PO HS 11/29/15 05/20/20 Melatonin 10 mg PO HS 11/29/15 05/20/20 Multivitamin with Iron 1 tab PO DAILY 11/29/15 05/20/20 [Multivitamins with Iron] Pantoprazole Sodium [Protonix] 40 mg PO DAILY 11/29/15 05/20/20 Potassium Chloride ER [K-Dur 20] 20 meq PO BID 11/29/15 05/20/20 allopurinoL [Zyloprim] 300 mg PO DAILY 11/29/15 05/20/20 Biotin 5 mg PO DAILY 03/26/16 05/20/20 Furosemide [Lasix] 20 mg PO BID 07/23/16 05/20/20 Calcium Citrate 500 mg PO DAILY 11/23/16 05/20/20 HYDROcodone/APAP 7.5-325MG [[place] 1 tab PO BID PRN 11/23/16 05/20/20 7.5-325] Propafenone [Rythmol] 300 mg PO AC-BRKFST 11/23/16 05/20/20 Vitamin B Complex 1 cap PO DAILY 11/23/16 05/20/20 buPROPion [Wellbutrin] 75 mg PO BID 11/23/16 05/20/20 Apixaban [Eliquis] 5 mg PO BID 12/09/17 05/20/20 Previous Rx's Medication Instructions Recorded amLODIPine [Norvasc] 5 mg PO DAILY #30 tab 04/02/16 Allergies Allergy/AdvReac Type Severity Reaction Status Date / Time No Known Allergies Allergy Verified 05/20/20 11:20 Review of Systems ROS Statement: Those systems with pertinent positive or pertinent negative responses have been documented in the HPI. ROS Other: All systems not noted in ROS Statement are negative. Past Medical History Past Medical History: Atrial Fibrillation, GERD/Reflux, Hypertension, Musculoskeletal Disorder, Pneumonia, Renal Disease Additional Past Medical History / Comment(s): BORN WITH ONLY RIGHT KIDNEY; Gout LT GREAT TOE. PANNICULUS on 03/26/2016, ABD HERNIA'S X3 CURRENTLY. VARICOSE VEIN. History of Any Multi-Drug Resistant Organisms: None Reported Past Surgical History: Bariatric Surgery, Section, Cholecystectomy, Hernia Repair, Hysterectomy Additional Past Surgical History / Comment(s): 2010 Panniculectomy; Several Hernia Surgeries; Gastric Sleeve 2013. Panniculectomy and hernia repair 03/26/2016 Past Anesthesia/Blood Transfusion Reactions: No Reported Reaction Past Psychological History: Anxiety, Depression Smoking Status: Never smoker Past Alcohol Use History: Occasional Past Drug Use History: None Reported - Past Family History Father Family Medical History: Diabetes Mellitus Mother Family Medical History: Cancer, Liver Disease General Exam Limitations: physical limitation General appearance: alert, in no apparent distress Head exam: Present: atraumatic, normocephalic, normal inspection Extremities exam: Present: other (palpable suspected hematoma medial aspect left mid calf. surrounding ecchymosis. <2 sec cap refill. 2+ DP and PT pulses. intact sensation over the medial, lateral and dorsal b/l le. Reflexes intact.) Psychiatric exam: Present: normal affect, normal mood Skin exam: Present: warm, dry, intact, normal color. Absent: rash Course Vital Signs 05/20/20 05/20/20 10:46 12:55 Temperature 98.8 F 97.8 F Pulse Rate 66 78 Respiratory 18 16 Rate Blood Pressure 123/72 138/78 O2 Sat by Pulse 95 98 Oximetry Medical Decision Making - Medical Decision Making Upon arrival the patient is placed in room 17. A thorough history and physical exam was performed. Patient is neurovascularly intact. Compartments are soft. Ultrasound is performed of the left lower extremity which demonstrates no evidence of DVT. Aea of concern is a [id number] sized non-simple fluid c ollection with probable oval-shaped subcutaneous hematoma. Results are discussed with the patient. She is instructed to continue taking her Eliquis. She needs to rest, ice and elevate the extremity. Patient is given strict return parameters regarding compartment syndrome and the need for return. She is instructed to follow-up with her physician within 2-4 days. Return to the emergency room for any new or worsening symptoms. Patient was in agreement with this and was discharged home in stable condition Disposition Clinical Impression: Subcutaneous hematoma Disposition: HOME SELF-CARE Condition: Stable Instructions (If sedation given, give patient instructions): Hematoma (ED) Additional Instructions: Please rest, ice and elevate the extremity. Take your anticoagulation as directed. Follow up with your doctor in 2-4 days. Return to the ED for any new or worsening Is patient prescribed a controlled substance at d/c from ED?: No Referrals: Anna Marie Jackson DO [Primary Care Provider] - 1-2 days Time of Disposition: 12:44
[2020-05-20 12:57] VITALS: BP 138/78; PULSE 78; RESP 16; TEMP 97.8
== END 2020-05-20 12:55 | disposition home or self-care (01) ==
LOC: EC 10:42
DX: M79.81 Nontraumatic hematoma of soft tissue (principal); I48.91 Unspecified atrial fibrillation; F41.9 Anxiety disorder, unspecified; F32.9 Major depressive disorder, single episode, unspecified; K21.9 Gastro-esophageal reflux disease without esophagitis; I10 Essential (primary) hypertension; M10.9 Gout, unspecified; Z79.01 Long term (current) use of anticoagulants; Z79.899 Other long term (current) drug therapy; Z90.49 Acquired absence of other specified parts of digestive tract; Z90.710 Acquired absence of both cervix and uterus
CPT/HCPCS: 99283

== ENCOUNTER → 2024-10-07 | Outpatient (CLI) | payer MEDICARE ==
--- NOTE | 2024-10-07 15:50 | CT ---
EXAMINATION TYPE: CT brain wo con DATE OF EXAM: 10/07/2024 COMPARISON: None CLINICAL INDICATION: Female, 73 years old with history of W19.XXXA UNSPECIFIED FALL, INITIAL ENCOUNTE R; PHH, recurrent falls, dizziness, hit head CT DLP: 1100 mGycm Automated exposure control for dose reduction was used. Findings: The ventricles, basal cisterns and sulci over the convexities are within normal limits for the patien t's age and there is no mass effect or shift of midline structures. No abnormal density is seen throughout the brain parenchyma and there is no acute intra or extra-axia l hemorrhage. The posterior fossa including the brainstem, fourth ventricle and cerebellar pontine angles appear no rmal. Intraorbital contents appear normal and symmetric. There is an air-fluid level in the right maxillary sinus indicating acute maxillary sinusitis. The calvarium is intact. IMPRESSION: 1. No acute bleed or mass effect. 2. Acute right maxillary sinusitis [facility], , 10/07/2024 3:47 PM
== END | disposition home or self-care (01) ==
LOC: RADCTMAIN 15:02
PROVIDERS: ATTEND Family Medicine
DX: J01.00 Acute maxillary sinusitis, unspecified (principal); W19.XXXA Unspecified fall, initial encounter
CPT/HCPCS: 70450